=== PATIENT | male | born 1975 | race Asian ===

== ENCOUNTER 2021-06-23 18:29 | Outpatient (CLI) | payer OTHER | END 2021-06-23 18:30 | disposition EMS.NT | LOC: EMS 18:29 | DX: R40.4 Transient alteration of awareness (principal) ==

== ENCOUNTER 2023-02-05 17:20 | Emergency (ER) | payer MEDICAID, OTHER ==
[2023-02-05 17:33] VITALS: BP 151/103
[2023-02-05 18:20] LABS: BASOPHILS # (AUTO) 0.1 10^3/uL (0.0-0.1); BASOPHILS % (AUTO) 0.9 %; EOSINOPHILS # (AUTO) 0.3 10^3/uL (0.0-0.7); EOSINOPHILS % (AUTO) 3.3 %; HCT - HEMATOCRIT 43.2 % (42.0-52.0); HGB - HEMOGLOBIN 14.2 g/dL (14.0-18.0); LYMPHOCYTES # (AUTO) 1.5 10^3/uL (1.5-3.5); LYMPHOCYTES % (AUTO) 19.6 %; MEAN CORPUSCULAR HEMOGLOBIN 32.6 pg (27.0-31.0); MEAN CORPUSCULAR HGB CONC 32.9 g/dL (32.0-36.0); MEAN CORPUSCULAR VOLUME 99.3 fL (80.0-94.0); MEAN PLATELET VOLUME 8.5 fL (7.4-11.4); MONOCYTES # (AUTO) 0.5 10^3/uL (0.0-1.0); MONOCYTES % (AUTO) 7.2 %; NEUTROPHILS # (AUTO) 5.2 10^3/uL (1.5-6.6); NEUTROPHILS % (AUTO) 68.9 %; PLT - PLATELET COUNT 293 10^3/uL (130-450); RED BLOOD COUNT 4.35 10^6/uL (4.70-6.10); RED CELL DISTRIBUTION WIDTH 14.1 % (12.0-15.0); WHITE BLOOD COUNT 7.6 x10^3/uL (4.8-10.8)
--- NOTE | 2023-02-05 18:25 | ED Physician Documentation ---
History of Present Illness - Stated complaint Stated Complaint: RT LEG PX,SWELLING - Chief complaint Chief Complaint: Ext Problem - History obtained from History obtained from: Patient - History of Present Illness Timing: Other (2 years ago) Pain level max: 0 Pain level now: 0 - Additonal information Additional information: Patient is a 47-year-old male who presents to the emergency department stating that he has not seen a doctor for several years since his . He stopped all of his medications at that time including his thyroid medications. His daughter brought him into the emergency department today as they are having difficulty finding a PCP. He complains of swelling to the bilateral lower extremities and thick scaly skin. No fevers. No chills. No redness. He states that he had been on a statin as well as thyroid medication in the past. He states there is a strong family history of diabetes but does not know if he is diabetic or not. Review of Systems Constitutional: denies: Fever, Chills Respiratory: denies: Dyspnea, Cough GI: denies: Nausea, Vomiting, Diarrhea Musculoskeletal: denies: Neck pain, Back pain Neurologic: denies: Headache PD PAST MEDICAL HISTORY - Past Medical History Past Medical History: Yes Endocrine/Autoimmune: HyPOthyroidism - Present Medications Home Medications: Ambulatory Orders Medication Instructions Recorded Confirmed Levothyroxine Sodium [Synthroid] 50 mcg PO DAILY #30 tablet 02/05/23 Simvastatin [Zocor] 10 mg PO DAILY #30 tablet 02/05/23 predniSONE [Deltasone] 10 mg PO [id number] #42 tab 02/05/23 - Allergies Allergies/Adverse Reactions: Allergies Allergy/AdvReac Type Severity Reaction Status Date / Time Penicillins Allergy Unknown Verified 02/05/23 17:33 - Social History Does the pt smoke?: Yes Smoking Status: Current every day smoker Does the pt have substance abuse?: Yes Substance Use and Type: Marijuana, Meth, Prescription Pills PD ED PE NORMAL - Vitals Vital signs reviewed: Yes - General General: Alert and oriented X 3, No acute distress - HEENT HEENT: PERRL, Moist mucous membranes - Neck Neck: Supple, no meningeal sign - Cardiac Cardiac: RRR, Strong equal pulses - Respiratory Respiratory: No respiratory distress, Clear bilaterally - Abdomen Abdomen: Soft, Non tender, Non distended - Back Back: No CVA TTP, No spinal TTP - Derm Derm: Warm and dry, Other (scaly rash to BLE, swelling to B LE as well. no signs of infection) - Extremities Extremities: Other (1+ BLE edema) - Neuro Neuro: Alert and oriented X 3 - Psych Psych: Normal mood, Normal affect Results - Vitals Vitals: Vital Signs - 24 hr 02/05/23 17:30 Temperature 36.6 C Heart Rate 78 Respiratory 16 Rate Blood Pressure 151/103 H O2 Saturation 100 Oxygen O2 Source Room air - Labs Labs: Laboratory Tests 02/05/23 02/05/23 02/05/23 18:12 18:12 18:12 WBC 7.6 RBC 4.35 L Hgb 14.2 Hct 43.2 MCV 99.3 H MCH 32.6 H MCHC 32.9 RDW 14.1 Plt Count 293 MPV 8.5 Neut # (Auto) 5.2 Lymph # (Auto) 1.5 [place] # (Auto) 0.5 Eos # (Auto) 0.3 Baso # (Auto) 0.1 Absolute Nucleated RBC 0.00 Nucleated RBC % 0.0 Sodium 138 Potassium 3.1 L Chloride 97 L Carbon Dioxide 29 Anion Gap 12.0 BUN 22 H Creatinine 1.1 Estimated GFR (MDRD) 72 L Glucose 70 Estimat Average Glucose Hemoglobin A1c % Calcium 9.3 Total Bilirubin 0.5 AST 39 ALT 20 Alkaline Phosphatase 75 Total Protein 8.1 Albumin 4.8 Globulin 3.3 Albumin/Globulin Ratio 1.5 TSH 114.12 H Free T4 < 0.25 L Free T3 pg/mL 2.39 L 02/05/23 18:12 WBC RBC Hgb Hct MCV MCH MCHC RDW Plt Count MPV Neut # (Auto) Lymph # (Auto) [place] # (Auto) Eos # (Auto) Baso # (Auto) Absolute Nucleated RBC Nucleated RBC % Sodium Potassium Chloride Carbon Dioxide Anion Gap BUN Creatinine Estimated GFR (MDRD) Glucose Estimat Average Glucose 120 H Hemoglobin A1c % 5.8 Calcium Total Bilirubin AST ALT Alkaline Phosphatase Total Protein Albumin Globulin Albumin/Globulin Ratio TSH Free T4 Free T3 pg/mL PD Medical Decision Making - ED course Complexity details: reviewed results, re-evaluated patient, considered differential, d/w patient ED course: CBC does not show any acute abnormalities. Chemistry remarkable for a mildly low potassium, his hemoglobin A1c is 5.8. TSH is markedly high at 114. Free T4 is less than 0.25. Free T3 is 2.39. Patient has known hypothyroidism and has been off his medications for the last several years. We will restart at 50 mcg daily. We will have him follow-up with his doctor for further care. He is currently looking for a primary care provider. Information was given about the walk-in clinics. He states that due to the his insurance provider he is having difficulty finding a primary care provider [place], information was given on how to change his [facility]. We will start the patient back on a statin as well. We will also place the patient on prednisone to see if this improves his skin condition. Possible ichthyosis? Recommend large amounts of lotion, long baths. Patient will follow-up with dermatology as well. Patient and family counseled regarding signs and symptoms for which I believe and urgent re- evaluation would be necessary. Patient with good understanding of and agreement to plan and is comfortable going home at this time This document was made in part using voice recognition software. While efforts are made to proofread this document, sound alike and grammatical errors may occur. Departure - Departure Disposition: 01 Home, Self Care Clinical Impression: Dermatitis Hypothyroid Qualifiers: Hypothyroidism type: unspecified Qualified Code(s): E03.9 - Hypothyroidism, unspecified Condition: Good Instructions: ED Dermatitis Non Specific Rash, ED Hypothyroidism Follow-Up: [facility] [place] [Provider Group] Primary/Walk [facility] [Provider Group] [facility] [place] [Provider Group] Walk In [facility] [Provider Group] [facility] [Provider Group] Prescriptions: predniSONE [Deltasone] 10 mg PO [id number] #42 tab Levothyroxine Sodium [Synthroid] 50 mcg PO DAILY #30 tablet Simvastatin [Zocor] 10 mg PO DAILY #30 tablet Comments: Your prescriptions were sent to [facility] in [place]. Please follow-up with a primary care provider for further care. I have included instructions below on how to change your managed care plan. It is important that you have your thyroid studies rechecked with your primary care provider, they will likely need to increase your dosage over time. You should also be using emollient-based lotion on your skin regularly. Please return if you worsen. How do I change my [employer] managed care plan? Change it on [employer]. Visit the [employer] Client Portal. Request a change online. Download the enrollment form online and mail it or fax it to . Call the [facility] at . You can google the following as well: change [facility] provider [facility] Discharge Date/Time: 02/05/23 20:04
[2023-02-05 18:30] LABS: ALBUMIN 4.8 g/dL (3.2-5.5); ALBUMIN/GLOBULIN RATIO 1.5 (1.0-2.2); BILIRUBIN,TOTAL 0.5 mg/dL (0.2-1.0); CALCIUM 9.3 mg/dL (8.5-10.3); CREATININE 1.1 mg/dL (0.6-1.2); POTASSIUM 3.1 mmol/L (3.5-5.0); TOTAL PROTEIN 8.1 g/dL (6.7-8.2)
[2023-02-05 18:47] LABS: FREE T3 2.39 pg/mL (2.5-3.9)
[2023-02-05 19:13] LABS: THYROID STIMULATING HORMONE 114.12 uIU/mL (0.34-5.60)
[2023-02-05 19:15] LABS: FREE T4 (FREE THYROXINE) < 0.25 ng/dL (0.58-1.64)
[2023-02-05] MEDS ORDERED: predniSONE 20 MG TABLET PO STA (19:52)
[2023-02-05] MEDS ORDERED: LEVOTHYROXINE 25 MCG TABLET PO STA (19:52)
[2023-02-05 21:25] LABS: ESTIMATED AVERAGE GLUCOSE 120 mg/dL (70-100); HEMOGLOBIN A1c% 5.8 % (4.27-6.07)
== END 2023-02-05 20:04 | disposition home or self-care (01) ==
LOC: ED 17:20
DX: E03.9 Hypothyroidism, unspecified (principal); L30.9 Dermatitis, unspecified; F17.200 Nicotine dependence, unspecified, uncomplicated
CPT/HCPCS: 36415; 80053; 83036; 84439; 84443; 84481; 85025; 99283; 99284; A9270; J7512

== ENCOUNTER 2023-09-30 14:12 | Outpatient (CLI) | payer MEDICAID | END 2023-09-30 14:13 | disposition critical access hospital (66) | LOC: EMS 14:12 | DX: R03.0 Elevated blood-pressure reading, without diagnosis of hypertension (principal); R06.4 Hyperventilation; R45.1 Restlessness and agitation | CPT/HCPCS: A0425; A0429; A0999 ==

== ENCOUNTER 2023-09-30 15:07 | Emergency (ER) | payer MEDICAID ==
--- NOTE | 2023-09-30 15:12 | ED Physician Documentation ---
PD HPI SYNCOPE - Stated complaint Stated Complaint: HIGH BP/WITHDRAWL - History obtained from History obtained from: Patient, Caregiver (Patient came from [facility] due to elevated blood pressure.) - History of Present Illness Timing - onset: Other (Patient states last use of Meth and Fentanyl was last evening, just shortly prior to going to [facility] for Detox treatment. Intake last evening and has had some meds for symptoms, but had not had opioid withdrawal evident as yet and awaiting 24 hrs after last use. Pt noted to have elevated BP/dyspnea.) Duration: Other (pt states has been told he keri high BP in the past, about 150- 160 systolic on past reading. Not on meds. Had not had it elevated to level it was today.) Preceding symptoms: Dyspnea. No: Headache, Chest pain, Nausea / vomiting Associated symptoms: No: Chest pain, Palpitations, Abdominal pain Contributing factors: No: Decreased PO intake Similar symptoms before: Has not had sx before Recently seen: Clinic (has been at [facility] since last evening.) Review of Systems Constitutional: denies: Fever, Chills Nose: denies: Rhinorrhea / runny nose, Congestion Throat: denies: Sore throat Cardiac: denies: Chest pain / pressure, Palpitations, Pedal edema, Calf pain Respiratory: reports: Dyspnea, Cough. denies: Wheezing GI: reports: Nausea. denies: Abdominal Pain, Vomiting, Diarrhea PD PAST MEDICAL HISTORY - Past Medical History Cardiovascular: None Neuro: None Endocrine/Autoimmune: HyPOthyroidism - Present Medications Home Medications: Ambulatory Orders Medication Instructions Recorded Confirmed Levothyroxine Sodium [Synthroid] 50 mcg PO DAILY #30 tablet 02/05/23 09/30/23 Simvastatin [Zocor] 10 mg PO DAILY #30 tablet 02/05/23 09/30/23 Albuterol Sulfate [Proair 1 - 2 puffs IH Q4HR PRN 09/30/23 09/30/23 Respiclick] Gabapentin [Neurontin] 300 mg PO HS 09/30/23 09/30/23 Losartan Potassium 100 mg PO DAILY #30 tab 09/30/23 Multivitamin 1 each PO DAILY 09/30/23 09/30/23 Vitamin B Complex Vit C No.3 [B 1 each PO DAILY 09/30/23 09/30/23 Complex with Vitamin C] cloNIDine [Catapres] 0.1 mg PO DAILY 09/30/23 09/30/23 hydrOXYzine HCL [Hydroxyzine HCl] 50 mg PO DAILY 09/30/23 09/30/23 methocarbamoL [Methocarbamol] 750 mg PO Q8HR PRN 09/30/23 09/30/23 - Allergies Allergies/Adverse Reactions: Allergies Allergy/AdvReac Type Severity Reaction Status Date / Time Penicillins Allergy Unknown Verified 09/30/23 15:21 - Social History Does the pt smoke?: Yes Smoking Status: Current every day smoker Does the pt have substance abuse?: Yes PD ED PE NORMAL - Vitals Vital signs reviewed: Yes - General General: Alert and oriented X 3, No acute distress (somewhat anxious, with elevated BP. no tremor per se. ), Well developed/nourished - Neck Neck: Supple, no meningeal sign, No adenopathy - Cardiac Cardiac: RRR, No murmur - Respiratory Respiratory: No respiratory distress, Clear bilaterally - Abdomen Abdomen: Soft, Non tender, Non distended - Derm Derm: Normal color, Warm and dry - Extremities Extremities: No tenderness to palpate, No edema, No calf tenderness / cord - Neuro Neuro: Alert and oriented X 3, No motor deficit, Normal speech Results - Vitals Vitals: Vital Signs - 24 hr 09/30/23 09/30/23 09/30/23 15:15 17:24 19:00 Temperature 35.6 C L Heart Rate 64 69 87 Respiratory 24 24 20 Rate Blood Pressure 208/142 H 179/135 H 188/155 H O2 Saturation 93 97 96 If not protocol 2 2 : Oxygen Flow, liters/minute 09/30/23 09/30/23 09/30/23 19:25 19:44 21:00 Temperature Heart Rate 86 78 80 Respiratory 28 H 15 15 Rate Blood Pressure 199/151 H 187/130 H O2 Saturation 98 98 If not protocol 2 : Oxygen Flow, liters/minute Oxygen O2 Source Room air - Labs Labs: Laboratory Tests 09/30/23 09/30/23 15:40 15:40 WBC 11.0 H RBC 4.82 Hgb 13.8 L Hct 43.3 MCV 89.8 MCH 28.6 MCHC 31.9 L RDW 14.3 Plt Count 478 H MPV 7.9 Neut # (Auto) 8.3 H Lymph # (Auto) 1.7 [place] # (Auto) 0.7 Eos # (Auto) 0.2 Baso # (Auto) 0.1 Absolute Nucleated RBC 0.00 Nucleated RBC % 0.0 Sodium 136 Potassium 4.1 Chloride 94 L Carbon Dioxide 36 H Anion Gap 6.0 BUN 19 Creatinine 0.9 Estimated GFR (MDRD) 90 Glucose 99 Calcium 9.4 Magnesium 2.1 Total Bilirubin 0.2 AST 18 ALT 15 Alkaline Phosphatase 126 H Total Protein 7.8 Albumin 4.2 Globulin 3.6 Albumin/Globulin Ratio 1.2 Lipase 49 - Rads (name of study) chest xray Relevant Findings:: Prelim report reviewed (changes of likely bronchitis. No infiltrates. ), EMP independent interpretation of test PD Medical Decision Making - ED course Complexity details: reviewed old records, reviewed results, considered differential (pt with some anxiousness and restless movement of arms/legs. No tremoring per se. BP elevated.History of elevated BP but not on meds. Presume more elevated now by circumstance and from withdrawal. Could be from meth vs fentanyl. Timing less likely fentanyl with last use last evening.), d/w patient Drug Therapy Requiring Monitoring for Toxicity: Gave IV lfuids and Inapsine/Ativan for presume some element of Meth withdrawal. Can watch for improvement, and also consider buprenorphine if gets more agitated, for fentanyl withdrawal. he was sleepy from the initial meds but also got more restless and agitated in bed. BP less but still elevated. I feel he is likely early opioid withdrawal. Given buprenorphine 0.3 mg IV. Less restless. Still sleepy. Can watch a bit more. CXR without infiltrates. He is smoker and has some cough. Could account for his dyspnea. Sats here are adequate. CXR does not appear c/w CHF. No leg edema.Can add Losartan BP med and Albuterol MDI for dyspnea. On change of shift, pt resting and presume will be returned to [facility] this evening. Departure - Departure Clinical Impression: Substance withdrawal, Hypertension Condition: Stable Record reviewed to determine appropriate education?: Yes Prescriptions: Losartan Potassium 100 mg PO DAILY #30 tab Comments: I wrote a prescription for losartan 100 mg daily for the next month to initiate blood pressure medication. Follow-up with primary care or walk-in clinic etc. Follow-up or return to the detox center in [place] for continued care of your withdrawal. You were given a dose of lorazepam as well as buprenorphine here to help with symptoms. You were given some nausea medicine droperidol as well. You were given initial doses of medication for your blood pressure. The goal of blood pressure control is to have it come down to a more normal level over several days or so and not to drop it immediately as that causes more potential symptoms. Some elevation of blood pressure is reasonable over the next couple of days as you are starting on new medication. I [facility] to [email or web address] in [place].
[2023-09-30] MEDS ORDERED: SODIUM CHLORIDE 0.9% 1,000 ML IV STA (15:24)
[2023-09-30] MEDS ORDERED: LORazepam 2 MG/ML VIAL IVP STA (15:30)
[2023-09-30] MEDS ORDERED: DROPERIDOL 5 MG/2 ML VIAL IVP STA (15:31)
[2023-09-30] MEDS ORDERED: LOSARTAN 50 MG TABLET PO STA (15:31)
[2023-09-30 15:49] LABS: BASOPHILS # (AUTO) 0.1 10^3/uL (0.0-0.1); BASOPHILS % (AUTO) 0.7 %; EOSINOPHILS # (AUTO) 0.2 10^3/uL (0.0-0.7); HCT - HEMATOCRIT 43.3 % (42.0-52.0); HGB - HEMOGLOBIN 13.8 g/dL (14.0-18.0); LYMPHOCYTES # (AUTO) 1.7 10^3/uL (1.5-3.5); LYMPHOCYTES % (AUTO) 15.6 %; MEAN CORPUSCULAR HEMOGLOBIN 28.6 pg (27.0-31.0); MEAN CORPUSCULAR HGB CONC 31.9 g/dL (32.0-36.0); MEAN CORPUSCULAR VOLUME 89.8 fL (80.0-94.0); MEAN PLATELET VOLUME 7.9 fL (7.4-11.4); MONOCYTES # (AUTO) 0.7 10^3/uL (0.0-1.0); MONOCYTES % (AUTO) 5.9 %; NEUTROPHILS # (AUTO) 8.3 10^3/uL (1.5-6.6); NEUTROPHILS % (AUTO) 75.4 %; PLT - PLATELET COUNT 478 10^3/uL (130-450); RED BLOOD COUNT 4.82 10^6/uL (4.70-6.10); RED CELL DISTRIBUTION WIDTH 14.3 % (12.0-15.0)
[2023-09-30 15:57] LABS: ALBUMIN 4.2 g/dL (3.2-5.5); ALBUMIN/GLOBULIN RATIO 1.2 (1.0-2.2); BILIRUBIN,TOTAL 0.2 mg/dL (0.2-1.0); CALCIUM 9.4 mg/dL (8.5-10.3); CREATININE 0.9 mg/dL (0.6-1.3); MAGNESIUM 2.1 mg/dL (1.7-2.3); POTASSIUM 4.1 mmol/L (3.5-4.5); TOTAL PROTEIN 7.8 g/dL (6.4-8.9)
[2023-09-30] MEDS ORDERED: BUPRENORPHINE 0.3 MG/ML VIAL IVP ONE (18:27)
[2023-09-30] MEDS ORDERED: ENALAPRILAT 1.25 MG/ML VIAL IVP STA (18:34)
--- NOTE | 2023-09-30 18:58 | XRAY Report ---
PROCEDURE: Chest 1V INDICATIONS: COUGH/DYSPNEA TECHNIQUE: One view of the chest was acquired. COMPARISON: None. FINDINGS: Uncooperative patient. Surgical changes and devices: None. Lungs and pleura: Diffuse thickening of the interstitial markings bilaterally. Possible strand-like opacity in the left lateral lower lung and right costophrenic sulcus. Mild bilateral peribronchial wa ll thickening. No significant pleural effusion. Mediastinum: Mediastinal contours appear normal. Heart size is normal. Bones and chest wall: No suspicious bony lesions. Overlying soft tissues appear unremarkable. IMPRESSION: Changes of probable bronchitis or reactive airways disease. There may be small bibasilar alveolar opacities, potentially infectious or inflammatory. Reviewed by: Lynne Pardo MD on 09/30/2023 6:56 PM PST Approved by: Lynne Pardo MD on 09/30/2023 6:56 PM PST Station ID: [id number]
[2023-09-30] MEDS ORDERED: ALBUTEROL NEB 2.5 MG/3 ML INH STA (19:13)
[2023-09-30] MEDS ORDERED: cloNIDine 0.1 MG TABLET PO STA (21:01)
[2023-09-30 23:39] VITALS: O2SAT 94
[2023-10-01 02:12] VITALS: BP 126/94
--- NOTE | 2023-10-01 06:40 | ED Physician Documentation ---
ED Addendum - Addendum Addendum: 10/01/23 06:37 The patient was signed out to me at change of shift, pending improved mental status and blood pressure and final disposition. He had come from my to our and there was question of whether he may be able to go there once stabilized. The patient actually remained quite stable in the emergency department. On my evaluation, he was somewhat drowsy but arouses easily and answers questions appropriately. The patient had no complaints other than he was irritated that he had had to stay in the ED for so long. The patient's blood pressure was running quite high which on review of prior records, appeared to be a chronic issue for him. The patient did not have any complaints to indicate hypertensive emergency, however. I did have concern of the leg to may not feel comfortable taking him back if his pressure was high, however, and so the patient was treated with a dose of clonidine on my shift. This did improve his pressure drastically to 126/93. The patient did not have any other symptoms of withdrawal whatsoever,. He was not tachycardic, nor was he tremulous. He did not demonstrate yawning or piloerection. He was resting comfortably in bed. He had already been given a dose of buprenorphine here in the emergency department and I did not feel that he needed more of this or more Ativan, which she had also received. The patient was no longer nauseated after receiving droperidol prior to my arrival and was able to simply rest comfortably in the emergency department. I do I did state that they would take him back and at this time, he is just awaiting Transfer to [facility] to which is scheduled to happen around 720 this morning. Final impression: See original note Disposition: Discharged to [facility] to in stable and improved condition.
== END 2023-10-01 07:27 | disposition home or self-care (01) ==
LOC: EDUNIT# → ED 15:07
DX: F19.239 Other psychoactive substance dependence with withdrawal, unspecified (principal); I10 Essential (primary) hypertension; F17.200 Nicotine dependence, unspecified, uncomplicated
CPT/HCPCS: 36415; 71045; 80053; 83690; 83735; 85025; 94640; 94664; 96374; 96375; 99284; 99285; A9270; J0592; J2060

== ENCOUNTER 2025-07-17 15:09 | Inpatient (IN) ==
[2025-07-17] MEDS ORDERED: NALOXONE 0.4 MG/ML VIAL ONE (15:18)
[2025-07-17] MEDS: SODIUM CHLORIDE 0.9% 1,000 ML IV STA ×5 (15:19→20:42)
--- OUTSIDE RECORDS SUMMARY | 2025-07-17 15:22 | EXTERNAL MEDICAL SUMMARY RPT | Continuity of Care Document ---
Author Organization [place] Address [address] [place] [id number] Phone Care Team Providers Care Network Technical Analyst Name Role Phone Nayan Morris Unavailable Unavailable Allergies and Intolerances date description facility reaction severity 2025-05-04 10:20:53 [facility] (no reactio n) (no severity) 2025-05-18 15:09:30 [facility] (no reactio n) (no severity) 2025-07-03 14:44:09 [facility] (no reactio n) (no severity) 2025-05-04 10:20:53 [facility] (no reactio n) (no severity) 2025-05-18 15:09:30 [facility] (no reactio n) (no severity) 2025-07-03 14:44:09 [facility] (no reactio n) (no severity) Medications date description facility 2025-05-04 00:00 Triamcinolone Acetonide [facility] 2025-05-04 00:00 Roflumilast [facility] 2025-05-04 00:00 Budesonide-Formoterol [facility] 2025-05-04 00:00 Ipratropium-Albuterol [facility] 2025-05-04 00:00 Levothyroxine [facility] 2025-05-04 00:00 Prednisone [facility] 2025-07-03 00:00 Prednisone [facility] 2025-05-04 00:00 Albuterol Sulfate [facility] 2025-07-03 00:00 Albuterol Sulfate [facility] 2025-05-04 00:00 Furosemide [facility] 2025-05-18 00:00 Tizanidine [facility] 2025-07-03 00:00 Fluoxetine [facility] 2025-05-04 00:00 [facility] 2025-05-04 00:00 Atorvastatin [facility] 2025-05-04 00:00 Albuterol Sulfate [facility] 2025-05-04 00:00 Metformin [facility] 2025-05-04 00:00 Levothyroxine [facility] 2025-05-04 00:00 Losartan [facility] 2025-05-04 00:00 Bupropion Hcl [facility] Problems date description facility 2025-05-04 10:59 Hypothyroidism, [facility] 2025-05-04 10:59 Hyperlipidemia, [facility] 2025-05-04 10:59 Impaired fasting glucose [facility] 2025-05-04 10:59 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, [facility] 2025-05-05 16:39 Hypothyroidism, [facility] 2025-05-05 16:39 Hyperlipidemia, [facility] 2025-05-05 16:39 Impaired fasting glucose [facility] 2025-05-05 16:39 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, [facility] 2025-07-03 00:00 Lung nodule [facility] Results/Labs test date facility value unit notes Result panel 1 Specimen collection (procedure) (no date) [facility] (missing) (missing) (missing) Result panel 2 Specimen collection (procedure) (no date) [facility] (missing) (missing) (missing) Result panel 3 Specimen collection (procedure) (no date) [facility] (missing) (missing) (missing) Result panel 4 Specimen collection (procedure) (no date) [facility] (missing) (missing) (missing) Result panel 5 Specimen collection (procedure) (no date) [facility] (missing) (missing) (missing) Result panel 6 Specimen collection (procedure) (no date) [facility] (missing) (missing) (missing) Result panel 7 Specimen collection (procedure) (no date) [facility] (missing) (missing) (missing) Result panel 8 Specimen collection (procedure) (no date) [facility] (missing) (missing) (missing) Result panel 9 Specimen collection (procedure) (no date) [facility] (missing) (missing) (missing) Result panel 10 Specimen collection (procedure) (no date) [facility] (missing) (missing) (missing) Result panel 11 Specimen collection (procedure) (no date) [facility] (missing) (missing) (missing) Result panel 12 Specimen collection (procedure) (no date) [facility] (missing) (missing) (missing) Result panel 13 Specimen collection (procedure) (no date) [facility] (missing) (missing) (missing) Result panel 14 Specimen collection (procedure) (no date) [facility] (missing) (missing) (missing) Result panel 15 Specimen collection (procedure) (no date) [facility] (missing) (missing) (missing) Result panel 16 Specimen collection (procedure) (no date) [facility] (missing) (missing) (missing) Result panel 17 Specimen collection (procedure) (no date) [facility] (missing) (missing) (missing) Result panel 18 Specimen collection (procedure) (no date) [facility] (missing) (missing) (missing) Result panel 19 Specimen collection (procedure) (no date) [facility] (missing) (missing) (missing) Result panel 20 Specimen collection (procedure) (no date) [facility] (missing) (missing) (missing) Result panel 21 Specimen collection (procedure) (no date) [facility] (missing) (missing) (missing) Result panel 22 Specimen collection (procedure) (no date) [facility] (missing) (missing) (missing) Result panel 23 Specimen collection (procedure) (no date) [facility] (missing) (missing) (missing) Result panel 24 Specimen collection (procedure) (no date) [facility] (missing) (missing) (missing) Result panel 25 Specimen collection (procedure) (no date) [facility] (missing) (missing) (missing) Result panel 26 Specimen collection (procedure) (no date) [facility] (missing) (missing) (missing) Result panel 27 Specimen collection (procedure) (no date) [facility] (missing) (missing) (missing) Result panel 28 Specimen collection (procedure) (no date) [facility] (missing) (missing) (missing) Result panel 29 Specimen collection (procedure) (no date) [facility] (missing) (missing) (missing) Result panel 30 Specimen collection (procedure) (no date) [facility] (missing) (missing) (missing) Result panel 31 Specimen collection (procedure) (no date) [facility] (missing) (missing) (missing) Result panel 32 Specimen collection (procedure) (no date) [facility] (missing) (missing) (missing) Result panel 33 Specimen collection (procedure) (no date) [facility] (missing) (missing) (missing) Result panel 34 Specimen collection (procedure) (no date) [facility] (missing) (missing) (missing) Result panel 35 Specimen collection (procedure) (no date) [facility] (missing) (missing) (missing) Result panel 36 Specimen collection (procedure) (no date) [facility] (missing) (missing) (missing) Result panel 37 Specimen collection (procedure) (no date) [facility] (missing) (missing) (missing) Result panel 38 Specimen collection (procedure) (no date) [facility] (missing) (missing) (missing) Result panel 39 Specimen collection (procedure) (no date) [facility] (missing) (missing) (missing) Result panel 40 Specimen collection (procedure) (no date) [facility] (missing) (missing) (missing) Result panel 41 Specimen collection (procedure) (no date) [facility] (missing) (missing) (missing) Result panel 42 Specimen collection (procedure) (no date) [facility] (missing) (missing) (missing) Result panel 43 Specimen collection (procedure) (no date) [facility] (missing) (missing) (missing) Result panel 44 Specimen collection (procedure) (no date) [facility] (missing) (missing) (missing) Result panel 45 Specimen collection (procedure) (no date) [facility] (missing) (missing) (missing) Result panel 46 Specimen collection (procedure) (no date) [facility] (missing) (missing) (missing) Result panel 47 Specimen collection (procedure) (no date) [facility] (missing) (missing) (missing) Result panel 48 Specimen collection (procedure) (no date) [facility] (missing) (missing) (missing) Result panel 49 Specimen collection (procedure) (no date) [facility] (missing) (missing) (missing) Result panel 50 Specimen collection (procedure) (no date) [facility] (missing) (missing) (missing) Result panel 51 Specimen collection (procedure) (no date) [facility] (missing) (missing) (missing) Result panel 52 Specimen collection (procedure) (no date) [facility] (missing) (missing) (missing) Result panel 53 Specimen collection (procedure) (no date) [facility] (missing) (missing) (missing) Result panel 54 Specimen collection (procedure) (no date) [facility] (missing) (missing) (missing) Result panel 55 Specimen collection (procedure) (no date) [facility] (missing) (missing) (missing) Result panel 56 Specimen collection (procedure) (no date) [facility] (missing) (missing) (missing) Result panel 57 Specimen collection (procedure) (no date) [facility] (missing) (missing) (missing) Result panel 58 Specimen collection (procedure) (no date) [facility] (missing) (missing) (missing) Result panel 59 Specimen collection (procedure) (no date) [facility] (missing) (missing) (missing) Result panel 60 Specimen collection (procedure) (no date) [facility] (missing) (missing) (missing) Result panel 61 Specimen collection (procedure) (no date) [facility] (missing) (missing) (missing) Result panel 62 Specimen collection (procedure) (no date) [facility] (missing) (missing) (missing) Result panel 63 Specimen collection (procedure) (no date) [facility] (missing) (missing) (missing) Result panel 64 Specimen collection (procedure) (no date) [facility] (missing) (missing) (missing) Result panel 65 Specimen collection (procedure) (no date) [facility] (missing) (missing) (missing) Result panel 66 Specimen collection (procedure) (no date) [facility] (missing) (missing) (missing) Result panel 67 Specimen collection (procedure) (no date) [facility] (missing) (missing) (missing) Result panel 68 Specimen collection (procedure) (no date) [facility] (missing) (missing) (missing) Result panel 69 Specimen collection (procedure) (no date) [facility] (missing) (missing) (missing) Result panel 70 Specimen collection (procedure) (no date) [facility] (missing) (missing) (missing) Result panel 71 Specimen collection (procedure) (no date) [facility] (missing) (missing) (missing) Result panel 72 Specimen collection (procedure) (no date) [facility] (missing) (missing) (missing) Result panel 73 Specimen collection (procedure) (no date) [facility] (missing) (missing) (missing) Result panel 74 Specimen collection (procedure) (no date) [facility] (missing) (missing) (missing) Result panel 75 Specimen collection (procedure) (no date) [facility] (missing) (missing) (missing) Result panel 76 Specimen collection (procedure) (no date) [facility] (missing) (missing) (missing) Result panel 77 Specimen collection (procedure) (no date) [facility] (missing) (missing) (missing) Result panel 78 Specimen collection (procedure) (no date) [facility] (missing) (missing) (missing) Result panel 79 Specimen collection (procedure) (no date) [facility] (missing) (missing) (missing) Result panel 80 Specimen collection (procedure) (no date) [facility] (missing) (missing) (missing) Result panel 81 Specimen collection (procedure) (no date) [facility] (missing) (missing) (missing) Result panel 82 Specimen collection (procedure) (no date) [facility] (missing) (missing) (missing) Result panel 83 Specimen collection (procedure) (no date) [facility] (missing) (missing) (missing) Result panel 84 Specimen collection (procedure) (no date) [facility] (missing) (missing) (missing) Result panel 85 Specimen collection (procedure) (no date) [facility] (missing) (missing) (missing) Result panel 86 Specimen collection (procedure) (no date) [facility] (missing) (missing) (missing) Result panel 87 Specimen collection (procedure) (no date) [facility] (missing) (missing) (missing) Result panel 88 Specimen collection (procedure) (no date) [facility] (missing) (missing) (missing) Result panel 89 Specimen collection (procedure) (no date) [facility] (missing) (missing) (missing) Result panel 90 Specimen collection (procedure) (no date) [facility] (missing) (missing) (missing) Result panel 91 Specimen collection (procedure) (no date) [facility] (missing) (missing) (missing) Result panel 92 Specimen collection (procedure) (no date) [facility] (missing) (missing) (missing) Result panel 93 Specimen collection (procedure) (no date) [facility] (missing) (missing) (missing) Result panel 94 Specimen collection (procedure) (no date) [facility] (missing) (missing) (missing) Result panel 95 Specimen collection (procedure) (no date) [facility] (missing) (missing) (missing) Result panel 96 Specimen collection (procedure) (no date) [facility] (missing) (missing) (missing) Result panel 97 Specimen collection (procedure) (no date) [facility] (missing) (missing) (missing) Result panel 98 Specimen collection (procedure) (no date) [facility] (missing) (missing) (missing) Result panel 99 Specimen collection (procedure) (no date) [facility] (missing) (missing) (missing) Result panel 100 Specimen collection (procedure) (no date) [facility] (missing) (missing) (missing) Result panel 101 Specimen collection (procedure) (no date) [facility] (missing) (missing) (missing) Result panel 102 Specimen collection (procedure) (no date) [facility] (missing) (missing) (missing) Result panel 103 Specimen collection (procedure) (no date) [facility] (missing) (missing) (missing) Result panel 104 Specimen collection (procedure) (no date) [facility] (missing) (missing) (missing) Result panel 105 Specimen collection (procedure) (no date) [facility] (missing) (missing) (missing) Result panel 106 Specimen collection (procedure) (no date) [facility] (missing) (missing) (missing) Result panel 107 Specimen collection (procedure) (no date) [facility] (missing) (missing) (missing) Result panel 108 Specimen collection (procedure) (no date) [facility] (missing) (missing) (missing) Result panel 109 Specimen collection (procedure) (no date) [facility] (missing) (missing) (missing) Result panel 110 Specimen collection (procedure) (no date) [facility] (missing) (missing) (missing) Result panel 111 Specimen collection (procedure) (no date) [facility] (missing) (missing) (missing) Result panel 112 Specimen collection (procedure) (no date) [facility] (missing) (missing) (missing) Result panel 113 Specimen collection (procedure) (no date) [facility] (missing) (missing) (missing) Result panel 114 Specimen collection (procedure) (no date) [facility] (missing) (missing) (missing) Result panel 115 Specimen collection (procedure) (no date) [facility] (missing) (missing) (missing) Result panel 116 Specimen collection (procedure) (no date) [facility] (missing) (missing) (missing) Result panel 117 Specimen collection (procedure) (no date) [facility] (missing) (missing) (missing) Result panel 118 Specimen collection (procedure) (no date) [facility] (missing) (missing) (missing) Result panel 119 Specimen collection (procedure) (no date) [facility] (missing) (missing) (missing) Result panel 120 Specimen collection (procedure) (no date) [facility] (missing) (missing) (missing) Result panel 121 Specimen collection (procedure) (no date) [facility] (missing) (missing) (missing) Result panel 122 Specimen collection (procedure) (no date) [facility] (missing) (missing) (missing) Result panel 123 Specimen collection (procedure) (no date) [facility] (missing) (missing) (missing) Result panel 124 Specimen collection (procedure) (no date) [facility] (missing) (missing) (missing) Result panel 125 Specimen collection (procedure) (no date) [facility] (missing) (missing) (missing) Result panel 126 Specimen collection (procedure) (no date) [facility] (missing) (missing) (missing) Result panel 127 Specimen collection (procedure) (no date) [facility] (missing) (missing) (missing) Result panel 128 Specimen collection (procedure) (no date) [facility] (missing) (missing) (missing) Result panel 129 Specimen collection (procedure) (no date) [facility] (missing) (missing) (missing) Result panel 130 Specimen collection (procedure) (no date) [facility] (missing) (missing) (missing) Result panel 131 Specimen collection (procedure) (no date) [facility] (missing) (missing) (missing) Result panel 132 Specimen collection (procedure) (no date) [facility] (missing) (missing) (missing) Result panel 133 Specimen collection (procedure) (no date) [facility] (missing) (missing) (missing) Result panel 134 Specimen collection (procedure) (no date) [facility] (missing) (missing) (missing) Result panel 135 Specimen collection (procedure) (no date) [facility] (missing) (missing) (missing) Result panel 136 Specimen collection (procedure) (no date) [facility] (missing) (missing) (missing) Result panel 137 Specimen collection (procedure) (no date) [facility] (missing) (missing) (missing) Result panel 138 Specimen collection (procedure) (no date) [facility] (missing) (missing) (missing) Result panel 139 Specimen collection (procedure) (no date) [facility] (missing) (missing) (missing) Result panel 140 Specimen collection (procedure) (no date) [facility] (missing) (missing) (missing) Result panel 141 Specimen collection (procedure) (no date) [facility] (missing) (missing) (missing) Result panel 142 Specimen collection (procedure) (no date) [facility] (missing) (missing) (missing) Result panel 143 Specimen collection (procedure) (no date) [facility] (missing) (missing) (missing) Result panel 144 Specimen collection (procedure) (no date) [facility] (missing) (missing) (missing) Result panel 145 Specimen collection (procedure) (no date) [facility] (missing) (missing) (missing) Result panel 146 Specimen collection (procedure) (no date) [facility] (missing) (missing) (missing) Result panel 147 Specimen collection (procedure) (no date) [facility] (missing) (missing) (missing) Result panel 148 Specimen collection (procedure) (no date) [facility] (missing) (missing) (missing) Result panel 149 Specimen collection (procedure) (no date) [facility] (missing) (missing) (missing) Result panel 150 Specimen collection (procedure) (no date) [facility] (missing) (missing) (missing) Result panel 151 Specimen collection (procedure) (no date) [facility] (missing) (missing) (missing) Result panel 152 Specimen collection (procedure) (no date) [facility] (missing) (missing) (missing) Result panel 153 Specimen collection (procedure) (no date) [facility] (missing) (missing) (missing) Result panel 154 Hemoglobin A1c percentage 2025-05-04 10:56:07 [facility] 6.7 % (missing) Result panel 155 Triglyceride [Mass/volume] i n Serum or Plasma 2025-05-04 10:56:07 [facility] 169 mg/dL (m issing) Result panel 156 Cholesterol [Mass/volume] in Serum or Plasma 2025-05-04 10:56:07 [facility] 245 mg/dL (m issing) Result panel 157 Cholesterol in HDL [Mass/volume] in Serum or Plasma 2025-05-04 10:56:07 [facility] 42 mg/dL (miss ing) Result panel 158 Serum or plasma cholesterol in LDL measurement by calculation (mass/volume) 2025-05-04 10:56:07 [facility] 169 mg/dL (missing) Result panel 159 Thyroxine (T4) free [Mass/volume] in Serum or Plasma 2025-05-04 10:56:07 [facility] 0.25 ng/dL (miss ing) Result panel 160 Hemoglobin A1c percentage 2025-05-04 10:56:07 [facility] 6.7 % (missing) Result panel 161 Triglyceride [Mass/volume] i n Serum or Plasma 2025-05-04 10:56:07 [facility] 169 mg/dL ( issing) Result panel 162 Cholesterol [Mass/volume] in Serum or Plasma 2025-05-04 10:56:07 [facility] 245 mg/dL ( issing) Result panel 163 Cholesterol in HDL [Mass/volume] in Serum or Plasma 2025-05-04 10:56:07 [facility] 42 mg/dL ([facility]) Result panel 164 Serum or plasma cholesterol in LDL measurement by calculation (mass/volume) 2025-05-04 10:56:07 [facility] 169 mg/dL (missing) Result panel 165 Thyroxine (T4) free [Mass/volume] in Serum or Plasma 2025-05-04 10:56:07 [facility] 0.25 ng/dL ([facility]) Result panel 166 Triglycerides 2025-05-04 12:13 [facility] 169 mg/ dl NORMAL: <150 MG/DL BORDERLINE HIGH: 150-199 MG/DL HIGH: 200-499 MG/DL VERY HIGH: >500 MG/DL LDL Cholesterol Calculated 2025-05-04 12:13 [facility] 169 mg/dl OPTIMAL LESS THAN 100 MG/DL NEAR OR ABOVE OPTIMAL 100 - 129 MG/DL BORDERLINE HIGH 130 - 159 MG/DL HIGH 160 - 189 MG/DL VERY HIGH >= 190 MG/DL Cholesterol 2025-05-04 12:13 [facility] 245 mg/dl Desirable: <200 mg/dL Borderline High: 200-239 mg/dL High: >239 mg/dL HDL Cholesterol 2025-05-04 12:13 [facility] 42 m g/dl ATP-III [employer] HDL >60 mg/dL COUNT A 'NEGATIVE' RISK FACTOR. Result panel 167 TSH w/ Reflex to FT4 2025-05-04 12:42 [facility] 91.20 uiu/ml (missing) Result panel 168 Free T4, Direct Thyroxine 2025-05-04 13:22 [facility] 0.25 ng/dl (missing ) Hemoglobin A1C% w Est Avg Glu 2025-05-04 13:22 [facility] 6.7 % Hemoglob in A1c Estimated Average Glucose (mg/dl) 5% 97 6% 126 7% 154 8% 183 9% 212 10% 240 11% 269 12% 298 Individuals with Hemoglobin (Hb)A1c between 5.7-6.4% are at increased risk for diabetes. TSH w/ Reflex to FT4 2025-05-04 13:22 [facility] 91.20 uiu/ml (missing ) Social History date description facility 2025-05-04 00:00 Current some day smoker [facility] 2025-05-18 00:00 Current some day [facility] 2025-07-03 00:00 Current some day [facility] Vital Signs date measurement value units 2025-05-04 00:00 BMI 35.3 kg/m2 2025-05-04 00:00 BP_diastolic 90 mmHg 2025-05-04 00:00 BP_systolic 148 mmHg 2025-05-04 00:00 heart_rate 87 /min 2025-05-04 00:00 height_metric 177.8 cm 2025-05-04 00:00 height_standard 70 in 2025-05-04 00:00 o2_saturation 87 % 2025-05-04 00:00 temperature_metric 36.78 C 2025-05-04 00:00 temperature_standard 98.2 F 2025-05-04 00:00 weight_metric 111.69 kg 2025-05-04 00:00 weight_standard 246.23 lb 2025-05-18 00:00 BMI 34.7 kg/m2 2025-05-18 00:00 BP_diastolic 88 mmHg 2025-05-18 00:00 BP_systolic 132 mmHg 2025-05-18 00:00 heart_rate 86 /min 2025-05-18 00:00 height_metric 177.8 cm 2025-05-18 00:00 o2_saturation 96 % 2025-05-18 00:00 temperature_standard 98.2 F 2025-05-18 00:00 weight_metric 109.99 kg 2025-07-03 00:00 BMI 32.1 kg/m2 2025-07-03 00:00 BP_diastolic 82 mmHg 2025-07-03 00:00 BP_systolic 134 mmHg 2025-07-03 00:00 heart_rate 91 /min 2025-07-03 00:00 height_metric 177.8 cm 2025-07-03 00:00 o2_saturation 96 % 2025-07-03 00:00 temperature_standard 98.2 F 2025-07-03 00:00 weight_metric 101.77 kg
[2025-07-17] MEDS: NALOXONE 0.4 MG/ML VIAL IVP STA (15:23)
[2025-07-17 15:24] LABS: HCT - HEMATOCRIT 42.6 % (42.0-52.0); HGB - HEMOGLOBIN 12.4 g/dL (14.0-18.0); MEAN PLATELET VOLUME 9.1 fL (7.4-11.4); NRBC ABSOLUTE COUNT (AUTO) 0.30 x10^3/uL; NUCLEATED RED BLOOD CELLS AUTO 5.6 /100WBC; PLT - PLATELET COUNT 142 10^3/uL (130-450); RED CELL DISTRIBUTION WIDTH 16.1 % (12.0-15.0)
[2025-07-17 15:25] LABS: SLIDE REVIEW? Indicated
[2025-07-17 15:37] LABS: ALT ALANINE AMINOTRANSFERASE 127.0 IU/L (10-60); AST ASPARTATE AMINOTRANSFERASE 191.0 IU/L (10-42); BUN - BLOOD UREA NITROGEN 33.0 mg/dL (6-20); CARBON DIOXIDE - CO2 34.0 mmol/L (21-32); CREATININE 3.0 mg/dL (0.6-1.3); GFR - MDRD 22.0 (>89)
[2025-07-17] MEDS: DEXMEDETOMIDINE 400 MCG/100 ML 100 ML IV PRN (15:41)
--- NOTE | 2025-07-17 15:42 | XRAY Report ---
PROCEDURE: XR Chest for Line Placement INDICATIONS: s/p intubation TECHNIQUE: One view of the chest was acquired. COMPARISON: 09/12/2024 and 09/30/2023. FINDINGS: FINDINGS: Surgical changes and devices: ET tube tip is approximately 3.5 cm above the nazanin.. Lungs and pleura: No pleural effusions or pneumothorax. Pulmonary vascular congestion is seen, no definite focal infiltrate. Mediastinum: Mediastinal contours appear normal. Heart size is enlarged. Bones and chest wall: No suspicious bony lesions. Overlying soft tissues appear unremarkable. IMPRESSION: Cardiomegaly and mild congestion. No definite focal infiltrate. No pleural effusion or pneumothorax. ET tube appears in satisfactory position. Reviewed by: Vincent Carroll MD on 07/17/2025 3:38 PM PDT Approved by: Vincent Carroll MD on 07/17/2025 3:38 PM PDT Station ID: [id number]
[2025-07-17] MEDS: NOREPINEPHRINE/0.9 % NS 8 MG/250 ML BAG IV SCH (15:45)
--- NOTE | 2025-07-17 15:45 | ED Physician Documentation ---
History of Present Illness Stated complaint Stated Complaint: ROSC Chief complaint Chief Complaint: Cardiac History obtained from History obtained from: EMS Additonal information Additional information: 49-year-old male brought in by EMS after reports of being called for agonal respirations. EMS states that they found him agonal he breathing but no palpable pulse, therefore they started CPR. Gave 1 mg of epinephrine. Patient was into bed by EMS and a IO line was placed in the right lower leg. They then gave him 10 mg of Versed and 200 mcg of fentanyl as he was "fighting the tube". Patient is unresponsive upon arrival, intubated. Family arrived to the emergency department and states that he uses fentanyl, methamphetamines, opiates, nitrous and any other drug that he can get his hands on. He reportedly told the family that he was "ready to check out". Review of Systems Status of ROS: unobtainable due to medical condition Meds/Allgy Home Medications Ambulatory Orders Medication Instructions Recorded Confirmed albuterol sulfate 90 mcg/actuation 1 - 2 puff IH Q4HR PRN soa 09/30/23 07/17/25 breath activated powder inhaler (ProAir RespiClick) gabapentin 300 mg capsule 300 mg PO BID 09/30/2307/17 losartan 100 mg tablet 100 mg PO DAILY #30 tabs 07/17/25 albuterol sulfate 2.5 mg/3 mL 2.5 mg inhalation Q6H SC N 09/12/24 07/17/25 (0.083 %) solution for nebulization shortness of breat h or wheezing atorvastatin 40 mg tablet 40 mg PO QPM 09/12/24 budesonide-formoterol HFA 160 2 puff inhalation TID 07/17/25 mcg-4.5 mcg/actuation aerosol inhaler buprenorphine 8 mg-naloxone 2 mg 1 film sublingual TID 09/12/24 07/17/25 sublingual film (Suboxone) bupropion HCl 150 mg 24 hr tablet, 450 mg PO DAILY 07/2707/17/25 extended release fluoxetine 10 mg capsule 10 mg PO DAILY 09/12/2407/04 Held on 07/17/25. Instructions: Per Patient ipratropium 0.5 mg-albuterol 3 mg 3 ml inhalation BID 09/12/24 07/17/25 (2.5 mg base)/3 mL nebulization soln metformin 500 mg tablet,extended 500 mg PO DAILY 09/1207/17/25 release 24 hr oxybutynin chloride 5 mg tablet 5 mg PO DAILY 09/12/24 07/17/25 roflumilast 250 mcg tablet 250 mcg PO DAILY 09/12/24 1 tiotropium bromide 18 mcg capsule 1 cap inhalation MANUEL LY 09/12/24 07/17/25 with inhalation device tizanidine 4 mg tablet 4 mg PO BID PRN anxiety 09/0307/17/25 trazodone 50 mg tablet 150 mg PO HS PRN insomnia 07/17/25 furosemide 20 mg tablet 20 mg PO DAILY 07/17/2507/04 levothyroxine 175 mcg tablet 175 mcg PO DAILY 07/17/25 07/17/25 triamcinolone acetonide 0.1 % 1 applic topical BID PRN rash 07/17/25 07/17/25 topical cream Allergies Allergies Allergy/AdvReac Type Severity Reaction Status Date / Time Penicillins Allergy Unknown Verified 09/12/24 22:31 PFSH Active Problems All Active Problems (Updated 07/17/25 @ 22:17 by Wallace Sierra MD) Respiratory failure (Acute) Shock (Acute) Obtundation (Acute) Hypercapnic respiratory failure (Acute) Elevated liver transaminase level (Acute) MARIA DEL CARMEN (acute kidney injury) (Acute) Overdose (Acute) Medical History Medical History (Updated 07/17/25 @ 22:17 by Wallace Sierra MD) On home O2 Hypothyroid High cholesterol Hypertension COPD (chronic obstructive pulmonary disease) Surgical History Surgical History (Updated 09/12/24 @ 22:14 by Izabella Li RN) History of ankle surgery Social History Social History (Updated 07/17/25 @ 18:52 by Samy Jackson DO) Smoking Status: Smoker with current status unk Patient requests smoking cessation consult: No Do you feel safe in your home environment?: Yes History of physical, verbal, emotional, or financial abuse?: No Frequency: Daily Exam Exam Vital Signs: Vital Signs x48h Temp Pulse Resp BP Pulse Ox 07/17/25 16:50 38.5 C H 98 34 H 85/66 L 93 07/17/25 16:45 38.5 C H 99 34 H 102/58 L 95 07/17/25 16:40 38.4 C H 100 33 H 84/64 L 98 07/17/25 16:35 38.3 C H 100 33 H 103/71 93 07/17/25 16:30 38.3 C H 101 H 33 H 98/68 98 07/17/25 16:29 38.3 C H 102 H 34 H 95/71 98 07/17/25 16:20 38.3 C H 103 H 33 H 95/75 98 07/17/25 16:15 38.3 C H 100 33 H 103/68 99 07/17/25 16:10 38.3 C H 104 H 30 H 164/132 H 98 07/17/25 16:05 38.3 C H 105 H 33 H 169/75 H 07/17/25 16:00 38.3 C H 105 H 33 H 73 L 07/17/25 15:55 37.9 C 103 H 32 H 102/73 82 L 07/17/25 15:50 37.8 C 105 H 36 H 70/52 L 75 L 07/17/25 15:45 37.8 C 104 H 30 H 75 L 07/17/25 15:40 37.6 C 105 H 28 H 76/54 L 61 L 07/17/25 15:35 37.6 C 107 H 22 93/66 91 L 07/17/25 15:30 37.3 C 100 16 95/58 L 85 L 07/17/25 15:23 105 H 85/61 L 84 L 07/17/25 15:18 96 07/17/25 15:15 36.6 C 120 H 25 H 77 L 07/17/25 15:06 110 H Constitutional intubated HENMT normocephalic, head/scalp atraumatic and oropharynx normal Eyes Pinpoint pupils bilaterally Neck/C-Spine trachea midline No step-off or deformity over the cervical spine Respiratory breath sounds equal bilaterally breath sounds equal with bagging Cardiovascular normal heart rate noted and regular rhythm noted Gastrointestinal abdomen soft to palpation mild distention Back/Pelvis no thoracic spine tenderness and no lumbar spine tenderness Extremities chronic venous stasis B LE Skin no rash Results Vitals Vitals: Vital Signs - 24 hr 07/17/25 15:06 07/17/25 15:15 10/14/25 15:15 Temperature 36.6 C Temperature Source Temporal Artery Scan Pulse Rate 110 H 120 H Respiratory Rate 25 H Blood Pressure O2 Saturation 77 L Oxygen Delivery Method Ambu-Bag O2 Source Ambu bag Fraction of Inspired Oxygen (FIO2) Pain Intensity 0 07/17/25 15:18 07/17/25 15:23 07/17/25 15:30 Temperature 37.3 C Temperature Source Bladder Pulse Rate 105 H 100 Respiratory Rate 16 Blood Pressure 85/61 L 95/58 L O2 Saturation 96 84 L 85 L Oxygen Delivery Method O2 Source Ambu bag Mechanical ventilator Mechanical ventilator Fraction of Inspired Oxygen (FIO2) Pain Intensity 07/17/25 15:35 07/17/25 15:40 07/17/25 15:45 Temperature 37.6 C 37.6 C 37.8 C Temperature Source Bladder Bladder Bladder Pulse Rate 107 H 105 H 104 H Respiratory Rate 22 28 H 30 H Blood Pressure 93/66 76/54 L O2 Saturation 91 L 61 L 75 L Oxygen Delivery Method O2 Source Mechanical ventilator Mechanical ventilator Mechanical ventilator Fraction of Inspired Oxygen (FIO2) Pain Intensity 07/17/25 15:50 07/17/25 15:55 07/17/25 16:00 Temperature 37.8 C 37.9 C 38.3 C H Temperature Source Bladder Bladder Bladder Pulse Rate 105 H 103 H 105 H Respiratory Rate 36 H 32 H 33 H Blood Pressure 70/52 L 102/73 O2 Saturation 75 L 82 L 73 L Oxygen Delivery Method O2 Source Mechanical ventilator Mechanical ventilator Mechanical ventilator Fraction of Inspired Oxygen (FIO2) Pain Intensity 07/17/25 16:01 07/17/25 16:05 07/17/25 16:10 Temperature 38.3 C H 38.3 C H Temperature Source Bladder Bladder Pulse Rate 105 H 104 H Respiratory Rate 33 H 30 H Blood Pressure 169/75 H 164/132 H O2 Saturation 98 Oxygen Delivery Method O2 Source Mechanical ventilator Mechanical ventilator Fraction of Inspired Oxygen (FIO2) 75 Pain Intensity 07/17/25 16:15 07/17/25 16:20 07/17/25 16:29 Temperature 38.3 C H 38.3 C H 38.3 C H Temperature Source Bladder Bladder Bladder Pulse Rate 100 103 H 102 H Respiratory Rate 33 H 33 H 34 H Blood Pressure 103/68 95/75 95/71 O2 Saturation 99 98 98 Oxygen Delivery Method O2 Source Mechanical ventilator Mechanical ventilator Mechanical ventilator Fraction of Inspired Oxygen (FIO2) Pain Intensity 07/17/25 16:30 07/17/25 16:35 07/17/25 16:40 Temperature 38.3 C H 38.3 C H 38.4 C H Temperature Source Bladder Bladder Bladder Pulse Rate 101 H 100 100 Respiratory Rate 33 H 33 H 33 H Blood Pressure 98/68 103/71 84/64 L O2 Saturation 98 93 98 Oxygen Delivery Method O2 Source Mechanical ventilator Mechanical ventilator Mechanical ventilator Fraction of Inspired Oxygen (FIO2) Pain Intensity 07/17/25 16:45 07/17/25 16:50 Temperature 38.5 C H 38.5 C H Temperature Source Bladder Bladder Pulse Rate 99 98 Respiratory Rate 34 H 34 H Blood Pressure 102/58 L 85/66 L O2 Saturation 95 93 Oxygen Delivery Method O2 Source Mechanical ventilator Mechanical ventilator Fraction of Inspired Oxygen (FIO2) Pain Intensity Oxygen O2 Source Mechanical ventilator EKG (time done) 1520: EKG releavant findings:: EKG personally interpreted by author of this note. Relevant findings are: Rate: Other (103 bpm. Sinus tachycardia. Normal axis. Normal SC interval. Narrow QRS. Nonspecific ST changes.) Labs Labs: Laboratory Tests 07/17/25 07/17/25 07/17/25 15:15 15:20 15:36 WBC 5.3 RBC 4.15 L Hgb 12.4 L Hct 42.6 MCV 102.7 H MCH 29.9 MCHC 29.1 L RDW 16.1 H Plt Count 142 MPV 9.1 Neut # (Auto) 1.8 Lymph # (Auto) 2.5 Faulk # (Auto) 0.3 Eos # (Auto) 0.0 Baso # (Auto) 0.0 Absolute Nucleated RBC 0.30 Band Neuts % (Manual) Not Reportable Abnorm Lymph % (Manual) Not Reportable Nucleated RBC % 5.6 Neutrophils # (Manual) Not Reportable Lymphocytes # (Manual) Not Reportable Monocytes # (Manual) Not Reportable Eosinophils # (Manual) Not Reportable Basophils # (Manual) Not Reportable Differential Comment MANUAL=AUTO DIFF Manual Slide Review Indicated WBC Morphology NORMAL APPEARANCE Platelet Estimate NORMAL (130-450,000) Platelet Morphology NORMAL APPEARANCE RBC Morph Micro Appear 1+ MACROCYTOSIS Bld Gas Analysis Time Sample Site ABG pH ABG pCO2 ABG pO2 ABG HCO3 ABG Total CO2 ABG O2 Saturation ABG Base Excess Jimmy Test Respiration Rate O2 Delivery Device Vent Mode FiO2 Tidal Volume PEEP Sodium 144 Potassium 4.9 H Chloride 101 Carbon Dioxide 34 H Anion Gap 9.0 BUN 33 H Creatinine 3.0 H Estimated GFR (MDRD) 22 L Glucose 77 Calcium 8.8 Total Bilirubin 0.3 AST 191 H ALT 127 H Alkaline Phosphatase 117 Total Protein 7.0 Albumin 4.2 Globulin 2.8 Albumin/Globulin Ratio 1.5 Urine Color YELLOW Urine Clarity CLOUDY Urine pH 6.0 Ur Specific [place] >=1.030 H Urine Protein 30 H Urine Glucose (UA) NEGATIVE Urine Ketones NEGATIVE Urine Occult Blood MODERATE Urine Nitrite NEGATIVE Urine Bilirubin NEGATIVE Urine Urobilinogen 0.2 (NORMAL) Ur Leukocyte Esterase NEGATIVE Urine RBC 6-10 H Urine WBC 0-3 Ur Squamous Epith Cells NONE SEEN Urine Bacteria Few Urine Casts 3-5 Hyaline Casts Ur Microscopic Review INDICATED Urine Culture Comments NOT INDICATED Urine Creatinine 161.2 Urine Sodium 82.9 Salicylates < 1.5 Urine Opiates Screen NEGATIVE Ur Buprenorphine Scrn POSITIVE H Ur Oxycodone Screen NEGATIVE Urine Methadone Screen NEGATIVE Urine Fentanyl Screen Negative Acetaminophen 0.6 Ur Barbiturates Screen NEGATIVE Ur Tricyclics Screen NEGATIVE Ur Phencyclidine Scrn NEGATIVE Ur Amphetamine Screen NEGATIVE U Methamphetamines Scrn NEGATIVE U Benzodiazepines Scrn NEGATIVE Urine Cocaine Screen NEGATIVE U Cannabinoids Screen POSITIVE H Ur Drug Screen Comment CUTOFF CONC BELOW: Ethyl Alcohol < 10.0 07/17/25 15:40 WBC RBC Hgb Hct MCV MCH MCHC RDW Plt Count MPV Neut # (Auto) Lymph # (Auto) Faulk # (Auto) Eos # (Auto) Baso # (Auto) Absolute Nucleated RBC Band Neuts % (Manual) Abnorm Lymph % (Manual) Nucleated RBC % Neutrophils # (Manual) Lymphocytes # (Manual) Monocytes # (Manual) Eosinophils # (Manual) Basophils # (Manual) Differential Comment Manual Slide Review WBC Morphology Platelet Estimate Platelet Morphology RBC Morph Micro Appear Bld Gas Analysis Time 1545 Sample Site RIGHT RADIAL ABG pH 7.17 L* ABG pCO2 73 H* ABG pO2 89 ABG HCO3 26.4 H ABG Total CO2 28.6 ABG O2 Saturation 97 ABG Base Excess -2.4 L Jimmy Test POSITIVE Respiration Rate 16 O2 Delivery Device VENTILATOR Vent Mode Not Reportable FiO2 75.00 Tidal Volume 550 PEEP 5 Sodium Potassium Chloride Carbon Dioxide Anion Gap BUN Creatinine Estimated GFR (MDRD) Glucose Calcium Total Bilirubin AST ALT Alkaline Phosphatase Total Protein Albumin Globulin Albumin/Globulin Ratio Urine Color Urine Clarity Urine pH Ur Specific [place] Urine Protein Urine Glucose (UA) Urine Ketones Urine Occult Blood Urine Nitrite Urine Bilirubin Urine Urobilinogen Ur Leukocyte Esterase Urine RBC Urine WBC Ur Squamous Epith Cells Urine Bacteria Urine Casts Ur Microscopic Review Urine Culture Comments Urine Creatinine Urine Sodium Salicylates Urine Opiates Screen Ur Buprenorphine Scrn Ur Oxycodone Screen Urine Methadone Screen Urine Fentanyl Screen Acetaminophen Ur Barbiturates Screen Ur Tricyclics Screen Ur Phencyclidine Scrn Ur Amphetamine Screen U Methamphetamines Scrn U Benzodiazepines Scrn Urine Cocaine Screen U Cannabinoids Screen Ur Drug Screen Comment Ethyl Alcohol Rads (name of study) cxr, cxr: Relevant Findings:: Final report received PD Medical Decision Making ED course Complexity details: reviewed results, re-evaluated patient, considered differential, d/w family and d/w client experience consultant ED course: Patient with an apparent drug overdose, pinpoint pupils bilaterally. He was given IV fluids, started on Levophed and Precedex. Maintained on oxygen. NG tube placed. Patient did have emesis after a dose of 2 mg of Narcan. No reported falls or trauma. No scalp hematomas. No palpable fractures on the c- spine or skull. Does have a history of COPD and was given a DuoNeb treatment just prior to arrival by EMS. This may need to be repeated in the ICU. Creatinine is elevated above normal, normal is around 1, he is at 3.0. Given several liters of IV fluid. Will admit for further care. Discussed the case with the hospitalist. Patient did have a mildly elevated temperature just prior to admission to the ICU, will be followed up by hospitalist. This document was made in part using voice recognition software. While efforts are made to proofread this document, sound alike and grammatical errors may occur. Critical Care Critical Care Provided: Yes Time(min): 45 Time Includes: Direct patient care, Review records, Reassess patient, Document care, Coordinate care, Medical consult, Family consult for tx dec and See progress note Data interpretation: See progress note Procedures excluded from critical care time: See progress note Discharge Plan Discharge Patient Disposition: 66 [facility] DC/Xfer Condition: Serious Clinical Impression: MARIA DEL CARMEN (acute kidney injury), Obtundation Overdose Qualifiers: Encounter type: initial encounter Injury intent: undetermined intent Qualified Code(s): T50.904A - Poisoning by unspecified drugs, medicaments and biological substances, undetermined, initial encounter Respiratory failure Qualifiers: Chronicity: acute Respiratory failure complication: unspecified whether with hypoxia or hypercapnia Qualified Code(s): J96.00 - Acute respiratory failure, unspecified whether with hypoxia or hypercapnia Interventions: ED Admission Assessment Last Done: 07/17/25 17:30 Vitals documented within 30 minutes of discharge?: Yes
[2025-07-17 15:54] LABS: ABG BASE EXCESS -2.4 mmol/L (-2.0-3.0); ABG HCO3 26.4 mmol/L (22.0-26.0); ABG OXYGEN SATURATION 97 % (95-98); ABG PO2 89 mmHg (83-108); ABG TCO2 28.6 mmol/L (21.0-29.0)
[2025-07-17 15:55] LABS: ABG RESPIRATORY RATE 16 b/min
[2025-07-17 15:56] LABS: ABG FRACTION OF INSPIRED O2 75.00
[2025-07-17 15:59] LABS: PLATELET MORPHOLOGY NORMAL APPEARANCE (NORMAL); RBC MORPHOLOGY (MULTIPLE) 1+ MACROCYTOSIS (NORMAL)
[2025-07-17 16:00] LABS: PLATELET ESTIMATE, MANUAL NORMAL (130-450,000) (NORMAL); WBC MORPHOLOGY (MULTIPLE) NORMAL APPEARANCE (NORMAL)
[2025-07-17 16:01] LABS: ABG PCO2 73 mmHg (34-45); ABG PH 7.17 (7.35-7.45)
[2025-07-17 16:05] LABS: ETOH - ETHANOL < 10.0 mg/dL
--- NOTE | 2025-07-17 16:14 | XRAY Report ---
PROCEDURE: XR Chest for Line Placement INDICATIONS: NG tube, ETT advanced TECHNIQUE: One view of the chest was acquired. COMPARISON: Same day radiograph FINDINGS AND IMPRESSION: ET tube tip projects over the distal trachea. Enteric tube tip projects over the distal stomach. Percutaneous pacing pads in place. Right perihilar, midlung, and suprahilar opacity, with opacification at the right lung apex. This could represent airspace disease or underlying lesion. Surveillance imaging is recommended to ensure resolution. Heart size is at the upper limit of normal. Reviewed by: Jean Claude Boudreaux MD on 07/17/2025 4:11 PM PDT Approved by: Jean Claude Boudreaux MD on 07/17/2025 4:11 PM PDT Station ID: [id number]
--- NOTE | 2025-07-17 16:56 | HISTORY & PHYSICAL EXAMINATION ---
Chief Complaint Chief Complaint Chief Complaint: Unresponsive, found down History of Present Illness Admitted From Admitted From:: ED History Obtained From Records Reviewed: [facility] History obtained from: ED, EMS, Family Exam Limitations: Patient is sedated and ventillated History of Present Illness HPI Comment/Other: This is a 49-year-old male with past medical history of Remote polysubstance use, hypothyroidism, hypertension, COPD on home O2, hyperlipidemia, chronic venous insufficiency, and depression Who was found down by family and after being found to be unarousable EMS was called. EMS found the patient with agonal respirations. They found him breathing, but were not able to palpate a pulse and therefore started CPR. He got 1 mg of epinephrine in the field. IO was placed in the right lower leg but was nonfunctional by the time he was here and has since been removed. There was initially suspicion the patient had overdosed in the field. He has a history of heavy narcotic use and amphetamines. Notably had a period of prolonged sobriety starting in December 2023. He has since relapsed somewhat. He most recently has been doing large amounts of nitrous oxide, but is unclear that he is actually been doing any narcotics otherwise. He he unfortunately did receive fentanyl in the field so his UDS will not necessarily be indicative of his drug use. His family does not know of any recent narcotic or amphetamine use. He has been quite fatigued and at home for the last several days prior to admission, and they are dubious that he would have the energy to seek out additional drugs. They are actively working to see if any of his old dealer contacts have been in touch with him. Apparently, he has a protracted health decline over the last couple of years. He is on 4 L of oxygen continuously and does run out a few times when traveling around [facility]. His family is found him doing whippets and becoming hypoxic because he is off of his oxygen. He additionally removes his oxygen while sleeping at times. He was not wearing his oxygen when he was found by EMS. They are unclear if he is taking his medicines as directed. He was recently prescribed a prolonged high-dose steroid taper starting at 50 mg, unclear if he tapered but has stopped within the last couple of weeks which is also suspicious given his acute decompensation. He got 10 mg of Versed and 200 mcg of fentanyl after being intubated in the field he has since had 3 peripheral IVs placed, started on dextromethorphan, and is still intubated. He did receive IV and intranasal Narcan in the ED. He is in shock after being intubated. He is on Levophed at 8 mcg/min, though his pressor requirement is downtrending already in the ED. Review of systems as unobtainable given he is intubated and sedated. Meds/Allgy Home Medications Ambulatory Orders Medication Instructions Recorded Confirmed albuterol sulfate 90 mcg/actuation 1 - 2 puff IH Q4HR PRN soa 09/30/23 07/17/25 breath activated powder inhaler (ProAir RespiClick) gabapentin 300 mg capsule 300 mg PO BID 09/30/2307/17 losartan 100 mg tablet 100 mg PO DAILY #30 tabs 07/17/25 albuterol sulfate 2.5 mg/3 mL 2.5 mg inhalation Q6H NJ N 09/12/24 07/17/25 (0.083 %) solution for nebulization shortness of breat h or wheezing atorvastatin 40 mg tablet 40 mg PO QPM 09/12/24 budesonide-formoterol HFA 160 2 puff inhalation TID 07/17/25 mcg-4.5 mcg/actuation aerosol inhaler buprenorphine 8 mg-naloxone 2 mg 1 film sublingual TID 09/12/24 07/17/25 sublingual film (Suboxone) bupropion HCl 150 mg 24 hr tablet, 450 mg PO DAILY 07/2707/17/25 extended release fluoxetine 10 mg capsule 10 mg PO DAILY 09/12/2407/04 Held on 07/17/25. Instructions: Per Patient ipratropium 0.5 mg-albuterol 3 mg 3 ml inhalation BID 09/12/24 07/17/25 (2.5 mg base)/3 mL nebulization soln metformin 500 mg tablet,extended 500 mg PO DAILY 09/1207/17/25 release 24 hr oxybutynin chloride 5 mg tablet 5 mg PO DAILY 09/12/24 07/17/25 roflumilast 250 mcg tablet 250 mcg PO DAILY 09/12/24 1 tiotropium bromide 18 mcg capsule 1 cap inhalation MANUEL LY 09/12/24 07/17/25 with inhalation device tizanidine 4 mg tablet 4 mg PO BID PRN anxiety 09/0307/17/25 trazodone 50 mg tablet 150 mg PO HS PRN insomnia 07/17/25 furosemide 20 mg tablet 20 mg PO DAILY 07/17/2507/04 levothyroxine 175 mcg tablet 175 mcg PO DAILY 07/17/25 07/17/25 triamcinolone acetonide 0.1 % 1 applic topical BID PRN rash 07/17/25 07/17/25 topical cream Allergies Allergies Allergy/AdvReac Type Severity Reaction Status Date / Time Penicillins Allergy Unknown Verified 09/12/24 22:31 PFSH Active Problems All Active Problems (Updated 07/17/25 @ 18:37 by Samy Jackson DO) Shock (Acute) Obtundation (Acute) Hypercapnic respiratory failure (Acute) Elevated liver transaminase level (Acute) MARIA DEL CARMEN (acute kidney injury) (Acute) Overdose (Acute) Medical History Medical History (Updated 07/17/25 @ 18:37 by Samy Jackson DO) On home O2 Hypothyroid High cholesterol Hypertension COPD (chronic obstructive pulmonary disease) Surgical History Surgical History (Updated 09/12/24 @ 22:14 by Izabella Li RN) History of ankle surgery Social History Social History (Updated 09/12/24 @ 22:14 by Izabella Li, RN) Smoking Status: Smoker with current status unk Patient requests smoking cessation consult: No Do you feel safe in your home environment?: Yes History of physical, verbal, emotional, or financial abuse?: No Frequency: Daily Review of Systems Status of ROS: unobtainable due to endotracheal tube, unobtainable due to medical condition and unobtainable due to mental status Exam Exam Vital Signs: Vital Signs x48h Temp Pulse Pulse Resp BP BP Pulse Ox 07/17/25 17:33 38.6 C H 103 H 25 H 93/69 87 L 07/17/25 17:09 38.6 C H 101 H 99/71 94 07/17/25 17:05 38.5 C H 102 H 28 H 95/70 95 07/17/25 17:00 38.5 C H 98 36 H 89/71 L 85 L 07/17/25 16:55 38.5 C H 99 33 H 89/77 L 95 07/17/25 16:50 38.5 C H 98 34 H 85/66 L 93 07/17/25 16:45 38.5 C H 99 34 H 102/58 L 95 07/17/25 16:40 38.4 C H 100 33 H 84/64 L 98 07/17/25 16:35 38.3 C H 100 33 H 103/71 93 07/17/25 16:30 38.3 C H 101 H 33 H 98/68 98 07/17/25 16:29 38.3 C H 102 H 34 H 95/71 98 07/17/25 16:20 38.3 C H 103 H 33 H 95/75 98 07/17/25 16:15 38.3 C H 100 33 H 103/68 99 07/17/25 16:10 38.3 C H 104 H 30 H 164/132 H 98 07/17/25 16:05 38.3 C H 105 H 33 H 169/75 H 07/17/25 16:00 38.3 C H 105 H 33 H 73 L 07/17/25 15:55 37.9 C 103 H 32 H 102/73 82 L 07/17/25 15:50 37.8 C 105 H 36 H 70/52 L 75 L 07/17/25 15:45 37.8 C 104 H 30 H 75 L 07/17/25 15:40 37.6 C 105 H 28 H 76/54 L 61 L 07/17/25 15:35 37.6 C 107 H 22 93/66 91 L 07/17/25 15:30 37.3 C 100 16 95/58 L 85 L 07/17/25 15:23 105 H 85/61 L 84 L 07/17/25 15:18 96 07/17/25 15:15 36.6 C 120 H 25 H 77 L 07/17/25 15:06 110 H GEN: Intubated and sedated. HEENT: NC/AT, normal appearance of external ears and nose. ETT in place. OGT in place Cardiac: Regular rate and rhythm, no murmurs. No visible JVP elevation. Pulm: Rhonchi present in the lungs bilaterally. No cough. No wheezing appreciated. Breath sounds bilaterally. Abdomen: Obese, distended abdomen. Soft. Does not wince on palpation. Extremities: IO site in his right lower extremity is dressed. Bilateral feet are cool to the touch with weakly and intermittently palpable pulses Neuro: Face is symmetric. Pupils are constricted and equal bilaterally. Psych: Unable to assess. Conclusion/Plan Problem List (1) Obtundation: Plan: Overall unclear etiology. Initially suspicious for drug overdose, though his family story is not wholly consistent with this. He has a history remotely of using narcotics and amphetamines. More what lately he has been using whippets exclusively. Patient has been apparently more somnolent over the preceding weeks, worsened over the last 2 to 3 days prior to admission. No reported fevers at home. He has been coughing a lot, but no other clear localizing symptoms. He is currently with bilateral pinpoint pupils, consistent with narcotic overdose. I do question the utility of more reversal agents given that he is currently intubated and sedated. Last blood gas was shortly after being intubated, and he demonstrated respiratory acidosis (pH 7.17, pCO2 73). CXR shows ETT well-positioned - UDS, APAP, Salicylate level - Check TSH, r/o myxedema coma - Treat hypercapnia as below - Pulse dose steroids as below - Likely allow him to metabolize substances organically over the coming days - Continue sedation with Precedex, RASS goal <-1, Restraints ordered - Wean pressors - Trend CMP and CBC a.m. - Repeat ABG at 1730 - Given intentional overdose, will need psych evaluation after he wakes up (2) Hypercapnic respiratory failure: (3) COPD (chronic obstructive pulmonary disease): Plan: Per his history. Unclear if he is actually taking any of his home meds. He has filled them recently. He was recently on a steroid taper from 50 mg prescribed at end of May. He was reportedly supposed to taper this, unclear if he tapered or abruptly discontinued. He is normally on budesonide/formoterol, Tiotropium as needed albuterol, with DuoNebs at home. He is also on Roflumilast but no fill history. His fill history is suggestive of a recent COPD exacerbation in May. - Noted, he is intubated at this time - Will give steroids as adrenal insufficiency is on the differential, Solu- Medrol 125 3 times daily - May be difficult to extubate given chronic respiratory issues - Appreciate RT - SBT daily (4) MARIA DEL CARMEN (acute kidney injury): Plan: Baseline creatinine around 1.0. Creatinine on admission 3.0. Patient is still making urine. Clinically he is not dry, on diuretics at baseline. Will withhold further fluids right now. - Strict I/O - CMP a.m. - Will get FeUrea - Per the family, if his kidney function is to worsen [facility] is within his goals of care. He would need to transfer at this point. (5) Shock: Plan: Overall unclear etiology of his shock. He is recently titrated off steroids, and suspicious for adrenal insufficiency. Septic shock is also possible, he has been having low-grade fevers since he has been on the floor. He was reporting cough at home. - Starting antibiotics - On Levophed titrate with MAP goal of 65, consider starting vasopressin - Holding feeds while on vasopressors - Starting steroids as above. (6) High cholesterol: Plan: Per his fill history, he is on atorvastatin daily - Will hold for now, Monitoring CMP as above (7) Hypothyroid: Plan: History of hypothyroidism, Synthroid 175 mcg last filled today at his pharmacy. - Will check TSH, resume Synthroid in a.m. Qualifiers: Hypothyroidism type: acquired Qualified Code(s): E03.9 - Hypothyroidism, unspecified (8) Hypertension: Plan: Per history, on furosemide, losartan. - Will monitor fluids continuously, spot dose diuretics as needed - Strict I/O, daily weights - Holding antihypertensives as above while on pressors. Qualifiers: Hypertension type: primary hypertension Qualified Code(s): I10 - Essential (primary) hypertension (9) Elevated liver transaminase level: Plan: Elevated in a hepatocellular pattern. No recent labs to establish what his baseline is. Notably his liver function was normal 2 years ago. Bilirubin is normal. Low suspicion for obstructive process Suspect this may be related to some of his substances he ingested. - Monitor CMP a.m. - Defer further abdominal imaging at this time - APAP level as above Plan I spent a total of 87 minutes in the care of this patient today. This time was spent reviewing his labs, vital signs, imaging, interviewing family and examining the patient, and discussing his plan of care with staff and family. 87 minutes of this was critical care time including advance care planning. Lab Results Lab results reviewed: Yes 07/17/25 15:15 07/17/25 15:15 Diagnostic Imaging Results Diagnostic Imaging Results: positive Final report reviewed and Read independently EKG Results EKG Interpreted Independently: Yes EKG Comparison: Old EKG unavailable and No prior EKG EKG Findings: Sinus tachycardia.
--- OUTSIDE RECORDS SUMMARY | 2025-07-17 16:57 | EXTERNAL MEDICAL SUMMARY RPT | Continuity of Care Document ---
Author Organization [facility] Address [address] [place] [id number] Phone Care Team Providers Care Electrical Designer Name Role Phone Nayan Morris Unavailable Unavailable Allergies and Intolerances date description facility reaction severity 2025-05-04 10:20:53 [facility] (no reactio n) (no severity) 2025-05-18 15:09:30 [facility] (no reactio n) (no severity) 2025-07-03 14:44:09 [facility] (no reactio n) (no severity) 2025-05-04 10:20:53 [facility] (no reactio n) (no severity) 2025-05-18 15:09:30 [facility] (no reactio n) (no severity) 2025-07-03 14:44:09 [facility] (no reactio n) (no severity) Medications date description facility 2025-05-04 00:00 Triamcinolone Acetonide [facility] 2025-05-04 00:00 Roflumilast [facility] 2025-05-04 00:00 Budesonide-Formoterol [facility] 2025-05-04 00:00 Ipratropium-Albuterol [facility] 2025-05-04 00:00 Levothyroxine [facility] 2025-05-04 00:00 Prednisone [facility] 2025-07-03 00:00 Prednisone [facility] 2025-05-04 00:00 Albuterol Sulfate [facility] 2025-07-03 00:00 Albuterol Sulfate [facility] 2025-05-04 00:00 Furosemide [facility] 2025-05-18 00:00 Tizanidine [facility] 2025-07-03 00:00 Fluoxetine [facility] 2025-05-04 00:00 [facility] 2025-05-04 00:00 Atorvastatin [facility] 2025-05-04 00:00 Albuterol Sulfate [facility] 2025-05-04 00:00 Metformin [facility] 2025-05-04 00:00 Levothyroxine [facility] 2025-05-04 00:00 Losartan [facility] 2025-05-04 00:00 Bupropion Hcl [facility] Problems date description facility 2025-05-04 10:59 Hypothyroidism, [facility] 2025-05-04 10:59 Hyperlipidemia, [facility] 2025-05-04 10:59 Impaired fasting glucose [facility] 2025-05-04 10:59 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 2025-07-03 00:00 Lung nodule [facility] Results/Labs test date facility value unit notes Result panel 1 Specimen collection (procedure) (no date) [facility] (missing) (missing) (missing) Result panel 2 Specimen collection (procedure) (no date) [facility] (missing) (missing) (missing) Result panel 3 Specimen collection (procedure) (no date) [facility] (missing) (missing) (missing) Result panel 4 Specimen collection (procedure) (no date) [facility] (missing) (missing) (missing) Result panel 5 Specimen collection (procedure) (no date) [facility] (missing) (missing) (missing) Result panel 6 Specimen collection (procedure) (no date) [facility] (missing) (missing) (missing) Result panel 7 Specimen collection (procedure) (no date) [facility] (missing) (missing) (missing) Result panel 8 Specimen collection (procedure) (no date) [facility] (missing) (missing) (missing) Result panel 9 Specimen collection (procedure) (no date) [facility] (missing) (missing) (missing) Result panel 10 Specimen collection (procedure) (no date) [facility] (missing) (missing) (missing) Result panel 11 Specimen collection (procedure) (no date) [facility] (missing) (missing) (missing) Result panel 12 Specimen collection (procedure) (no date) [facility] (missing) (missing) (missing) Result panel 13 Specimen collection (procedure) (no date) [facility] (missing) (missing) (missing) Result panel 14 Specimen collection (procedure) (no date) [facility] (missing) (missing) (missing) Result panel 15 Specimen collection (procedure) (no date) [facility] (missing) (missing) (missing) Result panel 16 Specimen collection (procedure) (no date) [facility] (missing) (missing) (missing) Result panel 17 Specimen collection (procedure) (no date) [facility] (missing) (missing) (missing) Result panel 18 Specimen collection (procedure) (no date) [facility] (missing) (missing) (missing) Result panel 19 Specimen collection (procedure) (no date) [facility] (missing) (missing) (missing) Result panel 20 Specimen collection (procedure) (no date) [facility] (missing) (missing) (missing) Result panel 21 Specimen collection (procedure) (no date) [facility] (missing) (missing) (missing) Result panel 22 Specimen collection (procedure) (no date) [facility] (missing) (missing) (missing) Result panel 23 Specimen collection (procedure) (no date) [facility] (missing) (missing) (missing) Result panel 24 Specimen collection (procedure) (no date) [facility] (missing) (missing) (missing) Result panel 25 Specimen collection (procedure) (no date) [facility] (missing) (missing) (missing) Result panel 26 Specimen collection (procedure) (no date) [facility] (missing) (missing) (missing) Result panel 27 Specimen collection (procedure) (no date) [facility] (missing) (missing) (missing) Result panel 28 Specimen collection (procedure) (no date) [facility] (missing) (missing) (missing) Result panel 29 Specimen collection (procedure) (no date) [facility] (missing) (missing) (missing) Result panel 30 Specimen collection (procedure) (no date) [facility] (missing) (missing) (missing) Result panel 31 Specimen collection (procedure) (no date) [facility] (missing) (missing) (missing) Result panel 32 Specimen collection (procedure) (no date) [facility] (missing) (missing) (missing) Result panel 33 Specimen collection (procedure) (no date) [facility] (missing) (missing) (missing) Result panel 34 Specimen collection (procedure) (no date) [facility] (missing) (missing) (missing) Result panel 35 Specimen collection (procedure) (no date) [facility] (missing) (missing) (missing) Result panel 36 Specimen collection (procedure) (no date) [facility] (missing) (missing) (missing) Result panel 37 Specimen collection (procedure) (no date) [facility] (missing) (missing) (missing) Result panel 38 Specimen collection (procedure) (no date) [facility] (missing) (missing) (missing) Result panel 39 Specimen collection (procedure) (no date) [facility] (missing) (missing) (missing) Result panel 40 Specimen collection (procedure) (no date) [facility] (missing) (missing) (missing) Result panel 41 Specimen collection (procedure) (no date) [facility] (missing) (missing) (missing) Result panel 42 Specimen collection (procedure) (no date) [facility] (missing) (missing) (missing) Result panel 43 Specimen collection (procedure) (no date) [facility] (missing) (missing) (missing) Result panel 44 Specimen collection (procedure) (no date) [facility] (missing) (missing) (missing) Result panel 45 Specimen collection (procedure) (no date) [facility] (missing) (missing) (missing) Result panel 46 Specimen collection (procedure) (no date) [facility] (missing) (missing) (missing) Result panel 47 Specimen collection (procedure) (no date) [facility] (missing) (missing) (missing) Result panel 48 Specimen collection (procedure) (no date) [facility] (missing) (missing) (missing) Result panel 49 Specimen collection (procedure) (no date) [facility] (missing) (missing) (missing) Result panel 50 Specimen collection (procedure) (no date) [facility] (missing) (missing) (missing) Result panel 51 Specimen collection (procedure) (no date) [facility] (missing) (missing) (missing) Result panel 52 Specimen collection (procedure) (no date) [facility] (missing) (missing) (missing) Result panel 53 Specimen collection (procedure) (no date) [facility] (missing) (missing) (missing) Result panel 54 Specimen collection (procedure) (no date) [facility] (missing) (missing) (missing) Result panel 55 Specimen collection (procedure) (no date) [facility] (missing) (missing) (missing) Result panel 56 Specimen collection (procedure) (no date) [facility] (missing) (missing) (missing) Result panel 57 Specimen collection (procedure) (no date) [facility] (missing) (missing) (missing) Result panel 58 Specimen collection (procedure) (no date) [facility] (missing) (missing) (missing) Result panel 59 Specimen collection (procedure) (no date) [facility] (missing) (missing) (missing) Result panel 60 Specimen collection (procedure) (no date) [facility] (missing) (missing) (missing) Result panel 61 Specimen collection (procedure) (no date) [facility] (missing) (missing) (missing) Result panel 62 Specimen collection (procedure) (no date) [facility] (missing) (missing) (missing) Result panel 63 Specimen collection (procedure) (no date) [facility] (missing) (missing) (missing) Result panel 64 Specimen collection (procedure) (no date) [facility] (missing) (missing) (missing) Result panel 65 Specimen collection (procedure) (no date) [facility] (missing) (missing) (missing) Result panel 66 Specimen collection (procedure) (no date) [facility] (missing) (missing) (missing) Result panel 67 Specimen collection (procedure) (no date) [facility] (missing) (missing) (missing) Result panel 68 Specimen collection (procedure) (no date) [facility] (missing) (missing) (missing) Result panel 69 Specimen collection (procedure) (no date) [facility] (missing) (missing) (missing) Result panel 70 Specimen collection (procedure) (no date) [facility] (missing) (missing) (missing) Result panel 71 Specimen collection (procedure) (no date) [facility] (missing) (missing) (missing) Result panel 72 Specimen collection (procedure) (no date) [facility] (missing) (missing) (missing) Result panel 73 Specimen collection (procedure) (no date) [facility] (missing) (missing) (missing) Result panel 74 Specimen collection (procedure) (no date) [facility] (missing) (missing) (missing) Result panel 75 Specimen collection (procedure) (no date) [facility] (missing) (missing) (missing) Result panel 76 Specimen collection (procedure) (no date) [facility] (missing) (missing) (missing) Result panel 77 Specimen collection (procedure) (no date) [facility] (missing) (missing) (missing) Result panel 78 Specimen collection (procedure) (no date) [facility] (missing) (missing) (missing) Result panel 79 Specimen collection (procedure) (no date) [facility] (missing) (missing) (missing) Result panel 80 Specimen collection (procedure) (no date) [facility] (missing) (missing) (missing) Result panel 81 Specimen collection (procedure) (no date) [facility] (missing) (missing) (missing) Result panel 82 Specimen collection (procedure) (no date) [facility] (missing) (missing) (missing) Result panel 83 Specimen collection (procedure) (no date) [facility] (missing) (missing) (missing) Result panel 84 Specimen collection (procedure) (no date) [facility] (missing) (missing) (missing) Result panel 85 Specimen collection (procedure) (no date) [facility] (missing) (missing) (missing) Result panel 86 Specimen collection (procedure) (no date) [facility] (missing) (missing) (missing) Result panel 87 Specimen collection (procedure) (no date) [facility] (missing) (missing) (missing) Result panel 88 Specimen collection (procedure) (no date) [facility] (missing) (missing) (missing) Result panel 89 Specimen collection (procedure) (no date) [facility] (missing) (missing) (missing) Result panel 90 Specimen collection (procedure) (no date) [facility] (missing) (missing) (missing) Result panel 91 Specimen collection (procedure) (no date) [facility] (missing) (missing) (missing) Result panel 92 Specimen collection (procedure) (no date) [facility] (missing) (missing) (missing) Result panel 93 Specimen collection (procedure) (no date) [facility] (missing) (missing) (missing) Result panel 94 Specimen collection (procedure) (no date) [facility] (missing) (missing) (missing) Result panel 95 Specimen collection (procedure) (no date) [facility] (missing) (missing) (missing) Result panel 96 Specimen collection (procedure) (no date) [facility] (missing) (missing) (missing) Result panel 97 Specimen collection (procedure) (no date) [facility] (missing) (missing) (missing) Result panel 98 Specimen collection (procedure) (no date) [facility] (missing) (missing) (missing) Result panel 99 Specimen collection (procedure) (no date) [facility] (missing) (missing) (missing) Result panel 100 Specimen collection (procedure) (no date) [facility] (missing) (missing) (missing) Result panel 101 Specimen collection (procedure) (no date) [facility] (missing) (missing) (missing) Result panel 102 Specimen collection (procedure) (no date) [facility] (missing) (missing) (missing) Result panel 103 Specimen collection (procedure) (no date) [facility] (missing) (missing) (missing) Result panel 104 Specimen collection (procedure) (no date) [facility] (missing) (missing) (missing) Result panel 105 Specimen collection (procedure) (no date) [facility] (missing) (missing) (missing) Result panel 106 Specimen collection (procedure) (no date) [facility] (missing) (missing) (missing) Result panel 107 Specimen collection (procedure) (no date) [facility] (missing) (missing) (missing) Result panel 108 Specimen collection (procedure) (no date) [facility] (missing) (missing) (missing) Result panel 109 Specimen collection (procedure) (no date) [facility] (missing) (missing) (missing) Result panel 110 Specimen collection (procedure) (no date) [facility] (missing) (missing) (missing) Result panel 111 Specimen collection (procedure) (no date) [facility] (missing) (missing) (missing) Result panel 112 Specimen collection (procedure) (no date) [facility] (missing) (missing) (missing) Result panel 113 Specimen collection (procedure) (no date) [facility] (missing) (missing) (missing) Result panel 114 Specimen collection (procedure) (no date) [facility] (missing) (missing) (missing) Result panel 115 Specimen collection (procedure) (no date) [facility] (missing) (missing) (missing) Result panel 116 Specimen collection (procedure) (no date) [facility] (missing) (missing) (missing) Result panel 117 Specimen collection (procedure) (no date) [facility] (missing) (missing) (missing) Result panel 118 Specimen collection (procedure) (no date) [facility] (missing) (missing) (missing) Result panel 119 Specimen collection (procedure) (no date) [facility] (missing) (missing) (missing) Result panel 120 Specimen collection (procedure) (no date) [facility] (missing) (missing) (missing) Result panel 121 Specimen collection (procedure) (no date) [facility] (missing) (missing) (missing) Result panel 122 Specimen collection (procedure) (no date) [facility] (missing) (missing) (missing) Result panel 123 Specimen collection (procedure) (no date) [facility] (missing) (missing) (missing) Result panel 124 Specimen collection (procedure) (no date) [facility] (missing) (missing) (missing) Result panel 125 Specimen collection (procedure) (no date) [facility] (missing) (missing) (missing) Result panel 126 Specimen collection (procedure) (no date) [facility] (missing) (missing) (missing) Result panel 127 Specimen collection (procedure) (no date) [facility] (missing) (missing) (missing) Result panel 128 Specimen collection (procedure) (no date) [facility] (missing) (missing) (missing) Result panel 129 Specimen collection (procedure) (no date) [facility] (missing) (missing) (missing) Result panel 130 Specimen collection (procedure) (no date) [facility] (missing) (missing) (missing) Result panel 131 Specimen collection (procedure) (no date) [facility] (missing) (missing) (missing) Result panel 132 Specimen collection (procedure) (no date) [facility] (missing) (missing) (missing) Result panel 133 Specimen collection (procedure) (no date) [facility] (missing) (missing) (missing) Result panel 134 Specimen collection (procedure) (no date) [facility] (missing) (missing) (missing) Result panel 135 Specimen collection (procedure) (no date) [facility] (missing) (missing) (missing) Result panel 136 Specimen collection (procedure) (no date) [facility] (missing) (missing) (missing) Result panel 137 Specimen collection (procedure) (no date) [facility] (missing) (missing) (missing) Result panel 138 Specimen collection (procedure) (no date) [facility] (missing) (missing) (missing) Result panel 139 Specimen collection (procedure) (no date) [facility] (missing) (missing) (missing) Result panel 140 Specimen collection (procedure) (no date) [facility] (missing) (missing) (missing) Result panel 141 Specimen collection (procedure) (no date) [facility] (missing) (missing) (missing) Result panel 142 Specimen collection (procedure) (no date) [facility] (missing) (missing) (missing) Result panel 143 Specimen collection (procedure) (no date) [facility] (missing) (missing) (missing) Result panel 144 Specimen collection (procedure) (no date) [facility] (missing) (missing) (missing) Result panel 145 Specimen collection (procedure) (no date) [facility] (missing) (missing) (missing) Result panel 146 Specimen collection (procedure) (no date) [facility] (missing) (missing) (missing) Result panel 147 Specimen collection (procedure) (no date) [facility] (missing) (missing) (missing) Result panel 148 Specimen collection (procedure) (no date) [facility] (missing) (missing) (missing) Result panel 149 Specimen collection (procedure) (no date) [facility] (missing) (missing) (missing) Result panel 150 Specimen collection (procedure) (no date) [facility] (missing) (missing) (missing) Result panel 151 Specimen collection (procedure) (no date) [facility] (missing) (missing) (missing) Result panel 152 Specimen collection (procedure) (no date) [facility] (missing) (missing) (missing) Result panel 153 Specimen collection (procedure) (no date) [facility] (missing) (missing) (missing) Result panel 154 Hemoglobin A1c percentage 2025-05-04 10:56:07 [facility] 6.7 % (missing) Result panel 155 Triglyceride [Mass/volume] i n Serum or Plasma 2025-05-04 10:56:07 [facility] 169 mg/dL (m issing) Result panel 156 Cholesterol [Mass/volume] in Serum or Plasma 2025-05-04 10:56:07 [facility] 245 mg/dL (m issing) Result panel 157 Cholesterol in HDL [Mass/volume] in Serum or Plasma 2025-05-04 10:56:07 [facility] 42 mg/dL (miss ing) Result panel 158 Serum or plasma cholesterol in LDL measurement by calculation (mass/volume) 2025-05-04 10:56:07 [facility] 169 mg/dL (missing) Result panel 159 Thyroxine (T4) free [Mass/volume] in Serum or Plasma 2025-05-04 10:56:07 [facility] 0.25 ng/dL (miss ing) Result panel 160 Hemoglobin A1c percentage 2025-05-04 10:56:07 [facility] 6.7 % (missing) Result panel 161 Triglyceride [Mass/volume] i n Serum or Plasma 2025-05-04 10:56:07 [facility] 169 mg/dL ( issing) Result panel 162 Cholesterol [Mass/volume] in Serum or Plasma 2025-05-04 10:56:07 [facility] 245 mg/dL ( issing) Result panel 163 Cholesterol in HDL [Mass/volume] in Serum or Plasma 2025-05-04 10:56:07 [facility] 42 mg/dL ([facility]) Result panel 164 Serum or plasma cholesterol in LDL measurement by calculation (mass/volume) 2025-05-04 10:56:07 [facility] 169 mg/dL (missing) Result panel 165 Thyroxine (T4) free [Mass/volume] in Serum or Plasma 2025-05-04 10:56:07 [facility] 0.25 ng/dL ([facility]) Result panel 166 Triglycerides 2025-05-04 12:13 [facility] 169 mg/ dl NORMAL: <150 MG/DL BORDERLINE HIGH: 150-199 MG/DL HIGH: 200-499 MG/DL VERY HIGH: >500 MG/DL LDL Cholesterol Calculated 2025-05-04 12:13 [facility] 169 mg/dl OPTIMAL LESS THAN 100 MG/DL NEAR OR ABOVE OPTIMAL 100 - 129 MG/DL BORDERLINE HIGH 130 - 159 MG/DL HIGH 160 - 189 MG/DL VERY HIGH >= 190 MG/DL Cholesterol 2025-05-04 12:13 [facility] 245 mg/dl Desirable: <200 mg/dL Borderline High: 200-239 mg/dL High: >239 mg/dL HDL Cholesterol 2025-05-04 12:13 [facility] 42 m g/dl ATP-III GUID[place]IN[place] STATE HDL >60 mg/dL COUNT A 'NEGATIVE' RISK FACTOR. Result panel 167 TSH w/ Reflex to FT4 2025-05-04 12:42 [facility] 91.20 uiu/ml (missing) Result panel 168 Free T4, Direct Thyroxine 2025-05-04 13:22 [facility] 0.25 ng/dl (missing ) Hemoglobin A1C% w Est Avg Glu 2025-05-04 13:22 [facility] 6.7 % Hemoglob in A1c Estimated Average Glucose (mg/dl) 5% 97 6% 126 7% 154 8% 183 9% 212 10% 240 11% 269 12% 298 Individuals with Hemoglobin (Hb)A1c between 5.7-6.4% are at increased risk for diabetes. TSH w/ Reflex to FT4 2025-05-04 13:22 [facility] 91.20 uiu/ml (missing ) Result panel 169 BASOPHILS # (AUTO) 2025-07-17 15:15 [facility] 0.0 10 3/ul (missing) EOSINOPHILS # (AUTO) 2025-07-17 15:15 [facility] 0.0 10 3/ul (missing) MONOCYTES # (AUTO) 2025-07-17 15:15 [facility] 0.3 10 3/ul (missing) BILIRUBIN,TOTAL 2025-07-17 15:15 [facility] 0.3 mg/dl As of April 2023 testing method has changed, this may include reference ranges. NRBC ABSOLUTE COUNT (AUTO) 2025-07-17 15:15 [facility] 0.30 x10 3/ul (missing) RBC MORPHOLOGY (MULTIPLE) 2025-07-17 15:15 [facility] 1+ MACROCYTOSIS (missing ) (missing) ALBUMIN/GLOBULIN RATIO 2025-07-17 15:15 [facility] 1.5 (missing ) (missing) NEUTROPHILS # (AUTO) 2025-07-17 15:15 [facility] 1.8 10 3/ul (missing) CHLORIDE 2025-07-17 15:15 [facility] 101 mmol/l As of April 2023 testing method has changed, this may include reference ranges. MEAN CORPUSCULAR VOLUME 2025-07-17 15:15 [facility] 102.7 fl (missing) ALKALINE PHOSPHATASE 2025-07-17 15:15 [facility] 117 iu/l As of April 2023 testing method has changed, this may include reference ranges. HGB - HEMOGLOBIN 2025-07-17 15:15 [facility] 12.4 g/dl (missing) ALT ALANINE AMINOTRANSFERASE 2025-07-17 15:15 [facility] 127 iu/l As of April 2023 testing method has changed, this may include reference ranges. PLT - PLATELET COUNT 2025-07-17 15:15 [facility] 142 10 3/ul (missing) SODIUM 2025-07-17 15:15 [facility] 144 mmol/l (missing) RED CELL DISTRIBUTION WIDTH 2025-07-17 15:15 [facility] 16.1 % (missing) AST ASPARTATE AMINOTRANSFERASE 2025-07-17 15:15 [facility] 191 iu/l As of April 2023 testing method has changed, this may include reference ranges. LYMPHOCYTES # (AUTO) 2025-07-17 15:15 [facility] 2.5 10 3/ul (missing) GLOBULIN 2025-07-17 15:15 [facility] 2.8 g/dl (missing) GFR - MDRD 2025-07-17 15:15 [facility] 22 (missing ) The IDMS-traceable MDRD Study Equation has been validated extensively in and populations between the ages of 18 and 70 with impaired kidney function (eGFR < 60 mL/min/1.73m2) and has shown good performance for patients with all common causes of kidney disease. Although this equation has not been validated for patients older than 70, an MDRD-derived eGFR may still be a useful tool for providers caring for patients older than 70. References: http://www.nkde p.nih.gov/lab-e valuation/gfr/c kimaniatinine-stand ardization, last updated December 2011. MEAN CORPUSCULAR HGB CONC 2025-07-17 15:15 [facility] 29.1 g/dl (missing) MEAN CORPUSCULAR HEMOGLOBIN 2025-07-17 15:15 [facility] 29.9 pg (missing) CREATININE 2025-07-17 15:15 [facility] 3.0 mg/dl As of April 2023 testing method has changed, this may include reference ranges. BUN - BLOOD UREA NITROGEN 2025-07-17 15:15 [facility] 33 mg/dl As of April 2023 testing method has changed, this may include reference ranges. CARBON DIOXIDE - CO2 2025-07-17 15:15 [facility] 34 mmol/l As of April 2023 testing method has changed, this may include reference ranges. RED BLOOD COUNT 2025-07-17 15:15 [facility] 4.15 10 6/ul (missing) ALBUMIN 2025-07-17 15:15 [facility] 4.2 g/dl As of April 2023 testing method has changed, this may include reference ranges. POTASSIUM 2025-07-17 15:15 [facility] 4.9 mmol/l As of April 2023 testing method has changed, this may include reference ranges. HCT - HEMATOCRIT 2025-07-17 15:15 [facility] 42.6 % (missing) WHITE BLOOD COUNT 2025-07-17 15:15 [facility] 5.3 x10 3/ul (missing) NUCLEATED RED BLOOD CELLS AUTO 2025-07-17 15:15 [facility] 5.6 /100wbc (missing) TOTAL PROTEIN 2025-07-17 15:15 [facility] 7.0 g/dl As of April 2023 testing method has changed, this may include reference ranges. GLUCOSE 2025-07-17 15:15 [facility] 77 mg/dl As of April 2023 testing method has changed, this may include reference ranges. CALCIUM 2025-07-17 15:15 [facility] 8.8 mg/dl As of April 2023 testing method has changed, this may include reference ranges. ANION GAP 2025-07-17 15:15 [facility] 9.0 (missing ) (missing) MEAN PLATELET VOLUME 2025-07-17 15:15 [facility] 9.1 fl (missing) SLIDE REVIEW? 2025-07-17 15:15 [facility] Indicated (missing ) (missing) DIFFERENTIAL COMMENT 2025-07-17 15:15 [facility] MANUAL=AUTO DIFF (missing ) MANUAL DIFFERENTIAL AGREES WITH AUTO DIFFERENTIAL PLATELET ESTIMATE, MANUAL 2025-07-17 15:15 [facility] NORMAL (130-450,000) (missing ) (missing) PLATELET MORPHOLOGY 2025-07-17 15:15 [facility] NORMAL APPEARANCE (missing ) (missing) WBC MORPHOLOGY (MULTIPLE) 2025-07-17 15:15 [facility] NORMAL APPEARANCE (missing ) (missing) Result panel 170 SALICYLATE 2025-07-17:20 [facility] < 1.5 mg/dl Salicyalte Theraputic Range <30mg/dL As of April 2023 testing method has changed, this may include reference ranges. ETOH - ETHANOL 2025-07-17:20 [facility] < 10.0 mg /dl Blood Alcohol Levels Level Sporadic Drinkers Chronic drinkers 100 mg/dL Legally intoxicated* Minimal signs 200-250 mg/dL Alertness lost, Effort needed to becoming lethargic maintain emotional and motor control 300-350 mg/dL Stupor to coma Drowsy and slow >500 mg/dL Possible Coma *The legal definition of intoxication varies. This assy is for medical decision making only. As of April 2023 testing method has changed, this may include reference ranges. ACETAMINOPHEN 2025-07-17 15:20 [facility] 0.6 ug/ ml Acetaminophen Therapeutic concentration 10-30 ug/mLHepatotoxicity concentrations - >150 ug/mL at 4hr after ingestion >75 ug/mL at 8hr after ingestion >40 ug/mL at 12hr after ingestion As of April 2023 testing method has changed, this may include reference ranges. Result panel 171 ABG BASE EXCESS 2025-07-17 15:40 [facility] -2.4 mmol/l (missing) ABG ANALYSIS TIME 2025-07-17 15:40 [facility] 1545 (missing) (missing) ABG RESPIRATORY RATE 2025-07-17 15:40 [facility] 16 b/min (missing) ABG HCO3 2025-07-17 15:40 [facility] 26.4 mmol/l (missing) ABG TCO2 2025-07-17 15:40 [facility] 28.6 mmol/l (missing) ABG PEAK END EXPIRATORY PRESSU 2025-07-17 15:40 [facility] 5 cmh2o (missing) ABG TIDAL VOLUME 2025-07-17 15:40 [facility] 550 ml (missing) ABG PH 2025-07-17 15:40 [facility] 7.17 (missing) Called to [facility] by Yancy Sheridan MLT([facility]) at 1600 07/17/25. Read back(Y/N)? yes ABG PCO2 2025-07-17 15:40 [facility] 73 mmhg Called to [facility] ED by Yancy Sheridan MLT(ASCP) at 1600 07/17/25. Read back(Y/N)? yes ABG FRACTION OF INSPIRED O2 2025-07-17 15:40 [facility] 75.00 (missing) (missing) ABG PO2 2025-07-17 15:40 [facility] 89 mmhg (missing) ABG OXYGEN SATURATION 2025-07-17 15:40 [facility] 97 % (missing) LAURA TEST 2025-07-17 15:40 [facility] POSITIVE (missing) Collateral Circulation Present, consistent with a Positive Allens Test. Information or result provided by Respiratory Therapy. ABG SITE OF DRAW 2025-07-17 15:40 [facility] RIGHT RADIAL (missing) (missing) ABG O2 DEVICE 2025-07-17 15:40 [facility] VENTILATOR (missing) (missing) Social History date description facility 2025-05-04 00:00 Current some day smoker [facility] 2025-05-18 00:00 Current some day [facility] 2025-07-03 00:00 Current some day [facility] Vital Signs date measurement value units [...]
[2025-07-17 17:01] LABS: AMPHETAMINE SCREEN,URINE NEGATIVE (NEGATIVE); BARBITURATE SCREEN,UR NEGATIVE (NEGATIVE); BENZODIAZEPINES SCREEN, URINE NEGATIVE (NEGATIVE); BUPRENORPHINE SCREEN, URINE POSITIVE (NEGATIVE); COCAINE SCREEN URINE NEGATIVE (NEGATIVE); METHADONE SCREEN, URINE NEGATIVE (NEGATIVE); METHAMPHETAMINES SCREEN, URINE NEGATIVE (NEGATIVE); OPIATE SCREEN, URINE NEGATIVE (NEGATIVE); THC CANNABINOID SCREEN, URINE POSITIVE (NEGATIVE)
--- OUTSIDE RECORDS SUMMARY | 2025-07-17 17:03 | EXTERNAL MEDICAL SUMMARY RPT | Continuity of Care Document ---
Author Organization [facility] Address [address] [place] [id number] Phone Care Team Providers Care Deputy [employer] Name Role Phone Nayan Morris Unavailable Unavailable Allergies and Intolerances date description facility reaction severity 2025-05-04 10:20:53 [facility] (no reactio n) (no severity) 2025-05-18 15:09:30 [facility] (no reactio n) (no severity) 2025-07-03 14:44:09 [facility] (no reactio n) (no severity) 2025-05-04 10:20:53 [facility] (no reactio n) (no severity) 2025-05-18 15:09:30 [facility] (no reactio n) (no severity) 2025-07-03 14:44:09 [facility] (no reactio n) (no severity) Medications date description facility 2025-05-04 00:00 Triamcinolone Acetonide [facility] 2025-05-04 00:00 Roflumilast [facility] 2025-05-04 00:00 Budesonide-Formoterol [facility] 2025-05-04 00:00 Ipratropium-Albuterol [facility] 2025-05-04 00:00 Levothyroxine [facility] 2025-05-04 00:00 Prednisone [facility] 2025-07-03 00:00 Prednisone [facility] 2025-05-04 00:00 Albuterol Sulfate [facility] 2025-07-03 00:00 Albuterol Sulfate [facility] 2025-05-04 00:00 Furosemide [facility] 2025-05-18 00:00 Tizanidine [facility] 2025-07-03 00:00 Fluoxetine [facility] 2025-05-04 00:00 Tiotropium [facility] 2025-05-04 00:00 Atorvastatin [facility] 2025-05-04 00:00 Albuterol Sulfate [facility] 2025-05-04 00:00 Metformin [facility] 2025-05-04 00:00 Levothyroxine [facility] 2025-05-04 00:00 Losartan [facility] 2025-05-04 00:00 Bupropion Hcl [facility] Problems date description facility 2025-05-04 10:59 Hypothyroidism, [facility] 2025-05-04 10:59 Hyperlipidemia, [facility] 2025-05-04 10:59 Impaired fasting glucose [facility] 2025-05-04 10:59 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, [facility] 2025-05-05 16:39 Hypothyroidism, [facility] 2025-05-05 16:39 Hyperlipidemia, [facility] 2025-05-05 16:39 Impaired fasting glucose [facility] 2025-05-05 16:39 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, [facility] 2025-07-03 00:00 Lung nodule [facility] Results/Labs test date facility value unit notes Result panel 1 Specimen collection (procedure) (no date) [facility] (missing) (missing) (missing) Result panel 2 Specimen collection (procedure) (no date) [facility] (missing) (missing) (missing) Result panel 3 Specimen collection (procedure) (no date) [facility] (missing) (missing) (missing) Result panel 4 Specimen collection (procedure) (no date) [facility] (missing) (missing) (missing) Result panel 5 Specimen collection (procedure) (no date) [facility] (missing) (missing) (missing) Result panel 6 Specimen collection (procedure) (no date) [facility] (missing) (missing) (missing) Result panel 7 Specimen collection (procedure) (no date) [facility] (missing) (missing) (missing) Result panel 8 Specimen collection (procedure) (no date) [facility] (missing) (missing) (missing) Result panel 9 Specimen collection (procedure) (no date) [facility] (missing) (missing) (missing) Result panel 10 Specimen collection (procedure) (no date) [facility] (missing) (missing) (missing) Result panel 11 Specimen collection (procedure) (no date) [facility] (missing) (missing) (missing) Result panel 12 Specimen collection (procedure) (no date) [facility] (missing) (missing) (missing) Result panel 13 Specimen collection (procedure) (no date) [facility] (missing) (missing) (missing) Result panel 14 Specimen collection (procedure) (no date) [facility] (missing) (missing) (missing) Result panel 15 Specimen collection (procedure) (no date) [facility] (missing) (missing) (missing) Result panel 16 Specimen collection (procedure) (no date) [facility] (missing) (missing) (missing) Result panel 17 Specimen collection (procedure) (no date) [facility] (missing) (missing) (missing) Result panel 18 Specimen collection (procedure) (no date) [facility] (missing) (missing) (missing) Result panel 19 Specimen collection (procedure) (no date) [facility] (missing) (missing) (missing) Result panel 20 Specimen collection (procedure) (no date) [facility] (missing) (missing) (missing) Result panel 21 Specimen collection (procedure) (no date) [facility] (missing) (missing) (missing) Result panel 22 Specimen collection (procedure) (no date) [facility] (missing) (missing) (missing) Result panel 23 Specimen collection (procedure) (no date) [facility] (missing) (missing) (missing) Result panel 24 Specimen collection (procedure) (no date) [facility] (missing) (missing) (missing) Result panel 25 Specimen collection (procedure) (no date) [facility] (missing) (missing) (missing) Result panel 26 Specimen collection (procedure) (no date) [facility] (missing) (missing) (missing) Result panel 27 Specimen collection (procedure) (no date) [facility] (missing) (missing) (missing) Result panel 28 Specimen collection (procedure) (no date) [facility] (missing) (missing) (missing) Result panel 29 Specimen collection (procedure) (no date) [facility] (missing) (missing) (missing) Result panel 30 Specimen collection (procedure) (no date) [facility] (missing) (missing) (missing) Result panel 31 Specimen collection (procedure) (no date) [facility] (missing) (missing) (missing) Result panel 32 Specimen collection (procedure) (no date) [facility] (missing) (missing) (missing) Result panel 33 Specimen collection (procedure) (no date) [facility] (missing) (missing) (missing) Result panel 34 Specimen collection (procedure) (no date) [facility] (missing) (missing) (missing) Result panel 35 Specimen collection (procedure) (no date) [facility] (missing) (missing) (missing) Result panel 36 Specimen collection (procedure) (no date) [facility] (missing) (missing) (missing) Result panel 37 Specimen collection (procedure) (no date) [facility] (missing) (missing) (missing) Result panel 38 Specimen collection (procedure) (no date) [facility] (missing) (missing) (missing) Result panel 39 Specimen collection (procedure) (no date) [facility] (missing) (missing) (missing) Result panel 40 Specimen collection (procedure) (no date) [facility] (missing) (missing) (missing) Result panel 41 Specimen collection (procedure) (no date) [facility] (missing) (missing) (missing) Result panel 42 Specimen collection (procedure) (no date) [facility] (missing) (missing) (missing) Result panel 43 Specimen collection (procedure) (no date) [facility] (missing) (missing) (missing) Result panel 44 Specimen collection (procedure) (no date) [facility] (missing) (missing) (missing) Result panel 45 Specimen collection (procedure) (no date) [facility] (missing) (missing) (missing) Result panel 46 Specimen collection (procedure) (no date) [facility] (missing) (missing) (missing) Result panel 47 Specimen collection (procedure) (no date) [facility] (missing) (missing) (missing) Result panel 48 Specimen collection (procedure) (no date) [facility] (missing) (missing) (missing) Result panel 49 Specimen collection (procedure) (no date) [facility] (missing) (missing) (missing) Result panel 50 Specimen collection (procedure) (no date) [facility] (missing) (missing) (missing) Result panel 51 Specimen collection (procedure) (no date) [facility] (missing) (missing) (missing) Result panel 52 Specimen collection (procedure) (no date) [facility] (missing) (missing) (missing) Result panel 53 Specimen collection (procedure) (no date) [facility] (missing) (missing) (missing) Result panel 54 Specimen collection (procedure) (no date) [facility] (missing) (missing) (missing) Result panel 55 Specimen collection (procedure) (no date) [facility] (missing) (missing) (missing) Result panel 56 Specimen collection (procedure) (no date) [facility] (missing) (missing) (missing) Result panel 57 Specimen collection (procedure) (no date) [facility] (missing) (missing) (missing) Result panel 58 Specimen collection (procedure) (no date) [facility] (missing) (missing) (missing) Result panel 59 Specimen collection (procedure) (no date) [facility] (missing) (missing) (missing) Result panel 60 Specimen collection (procedure) (no date) [facility] (missing) (missing) (missing) Result panel 61 Specimen collection (procedure) (no date) [facility] (missing) (missing) (missing) Result panel 62 Specimen collection (procedure) (no date) [facility] (missing) (missing) (missing) Result panel 63 Specimen collection (procedure) (no date) [facility] (missing) (missing) (missing) Result panel 64 Specimen collection (procedure) (no date) [facility] (missing) (missing) (missing) Result panel 65 Specimen collection (procedure) (no date) [facility] (missing) (missing) (missing) Result panel 66 Specimen collection (procedure) (no date) [facility] (missing) (missing) (missing) Result panel 67 Specimen collection (procedure) (no date) [facility] (missing) (missing) (missing) Result panel 68 Specimen collection (procedure) (no date) [facility] (missing) (missing) (missing) Result panel 69 Specimen collection (procedure) (no date) [facility] (missing) (missing) (missing) Result panel 70 Specimen collection (procedure) (no date) [facility] (missing) (missing) (missing) Result panel 71 Specimen collection (procedure) (no date) [facility] (missing) (missing) (missing) Result panel 72 Specimen collection (procedure) (no date) [facility] (missing) (missing) (missing) Result panel 73 Specimen collection (procedure) (no date) [facility] (missing) (missing) (missing) Result panel 74 Specimen collection (procedure) (no date) [facility] (missing) (missing) (missing) Result panel 75 Specimen collection (procedure) (no date) [facility] (missing) (missing) (missing) Result panel 76 Specimen collection (procedure) (no date) [facility] (missing) (missing) (missing) Result panel 77 Specimen collection (procedure) (no date) [facility] (missing) (missing) (missing) Result panel 78 Specimen collection (procedure) (no date) [facility] (missing) (missing) (missing) Result panel 79 Specimen collection (procedure) (no date) [facility] (missing) (missing) (missing) Result panel 80 Specimen collection (procedure) (no date) [facility] (missing) (missing) (missing) Result panel 81 Specimen collection (procedure) (no date) [facility] (missing) (missing) (missing) Result panel 82 Specimen collection (procedure) (no date) [facility] (missing) (missing) (missing) Result panel 83 Specimen collection (procedure) (no date) [facility] (missing) (missing) (missing) Result panel 84 Specimen collection (procedure) (no date) [facility] (missing) (missing) (missing) Result panel 85 Specimen collection (procedure) (no date) [facility] (missing) (missing) (missing) Result panel 86 Specimen collection (procedure) (no date) [facility] (missing) (missing) (missing) Result panel 87 Specimen collection (procedure) (no date) [facility] (missing) (missing) (missing) Result panel 88 Specimen collection (procedure) (no date) [facility] (missing) (missing) (missing) Result panel 89 Specimen collection (procedure) (no date) [facility] (missing) (missing) (missing) Result panel 90 Specimen collection (procedure) (no date) [facility] (missing) (missing) (missing) Result panel 91 Specimen collection (procedure) (no date) [facility] (missing) (missing) (missing) Result panel 92 Specimen collection (procedure) (no date) [facility] (missing) (missing) (missing) Result panel 93 Specimen collection (procedure) (no date) [facility] (missing) (missing) (missing) Result panel 94 Specimen collection (procedure) (no date) [facility] (missing) (missing) (missing) Result panel 95 Specimen collection (procedure) (no date) [facility] (missing) (missing) (missing) Result panel 96 Specimen collection (procedure) (no date) [facility] (missing) (missing) (missing) Result panel 97 Specimen collection (procedure) (no date) [facility] (missing) (missing) (missing) Result panel 98 Specimen collection (procedure) (no date) [facility] (missing) (missing) (missing) Result panel 99 Specimen collection (procedure) (no date) [facility] (missing) (missing) (missing) Result panel 100 Specimen collection (procedure) (no date) [facility] (missing) (missing) (missing) Result panel 101 Specimen collection (procedure) (no date) [facility] (missing) (missing) (missing) Result panel 102 Specimen collection (procedure) (no date) [facility] (missing) (missing) (missing) Result panel 103 Specimen collection (procedure) (no date) [facility] (missing) (missing) (missing) Result panel 104 Specimen collection (procedure) (no date) [facility] (missing) (missing) (missing) Result panel 105 Specimen collection (procedure) (no date) [facility] (missing) (missing) (missing) Result panel 106 Specimen collection (procedure) (no date) [facility] (missing) (missing) (missing) Result panel 107 Specimen collection (procedure) (no date) [facility] (missing) (missing) (missing) Result panel 108 Specimen collection (procedure) (no date) [facility] (missing) (missing) (missing) Result panel 109 Specimen collection (procedure) (no date) [facility] (missing) (missing) (missing) Result panel 110 Specimen collection (procedure) (no date) [facility] (missing) (missing) (missing) Result panel 111 Specimen collection (procedure) (no date) [facility] (missing) (missing) (missing) Result panel 112 Specimen collection (procedure) (no date) [facility] (missing) (missing) (missing) Result panel 113 Specimen collection (procedure) (no date) [facility] (missing) (missing) (missing) Result panel 114 Specimen collection (procedure) (no date) [facility] (missing) (missing) (missing) Result panel 115 Specimen collection (procedure) (no date) [facility] (missing) (missing) (missing) Result panel 116 Specimen collection (procedure) (no date) [facility] (missing) (missing) (missing) Result panel 117 Specimen collection (procedure) (no date) [facility] (missing) (missing) (missing) Result panel 118 Specimen collection (procedure) (no date) [facility] (missing) (missing) (missing) Result panel 119 Specimen collection (procedure) (no date) [facility] (missing) (missing) (missing) Result panel 120 Specimen collection (procedure) (no date) [facility] (missing) (missing) (missing) Result panel 121 Specimen collection (procedure) (no date) [facility] (missing) (missing) (missing) Result panel 122 Specimen collection (procedure) (no date) [facility] (missing) (missing) (missing) Result panel 123 Specimen collection (procedure) (no date) [facility] (missing) (missing) (missing) Result panel 124 Specimen collection (procedure) (no date) [facility] (missing) (missing) (missing) Result panel 125 Specimen collection (procedure) (no date) [facility] (missing) (missing) (missing) Result panel 126 Specimen collection (procedure) (no date) [facility] (missing) (missing) (missing) Result panel 127 Specimen collection (procedure) (no date) [facility] (missing) (missing) (missing) Result panel 128 Specimen collection (procedure) (no date) [facility] (missing) (missing) (missing) Result panel 129 Specimen collection (procedure) (no date) [facility] (missing) (missing) (missing) Result panel 130 Specimen collection (procedure) (no date) [facility] (missing) (missing) (missing) Result panel 131 Specimen collection (procedure) (no date) [facility] (missing) (missing) (missing) Result panel 132 Specimen collection (procedure) (no date) [facility] (missing) (missing) (missing) Result panel 133 Specimen collection (procedure) (no date) [facility] (missing) (missing) (missing) Result panel 134 Specimen collection (procedure) (no date) [facility] (missing) (missing) (missing) Result panel 135 Specimen collection (procedure) (no date) [facility] (missing) (missing) (missing) Result panel 136 Specimen collection (procedure) (no date) [facility] (missing) (missing) (missing) Result panel 137 Specimen collection (procedure) (no date) [facility] (missing) (missing) (missing) Result panel 138 Specimen collection (procedure) (no date) [facility] (missing) (missing) (missing) Result panel 139 Specimen collection (procedure) (no date) [facility] (missing) (missing) (missing) Result panel 140 Specimen collection (procedure) (no date) [facility] (missing) (missing) (missing) Result panel 141 Specimen collection (procedure) (no date) [facility] (missing) (missing) (missing) Result panel 142 Specimen collection (procedure) (no date) [facility] (missing) (missing) (missing) Result panel 143 Specimen collection (procedure) (no date) [facility] (missing) (missing) (missing) Result panel 144 Specimen collection (procedure) (no date) [facility] (missing) (missing) (missing) Result panel 145 Specimen collection (procedure) (no date) [facility] (missing) (missing) (missing) Result panel 146 Specimen collection (procedure) (no date) [facility] (missing) (missing) (missing) Result panel 147 Specimen collection (procedure) (no date) [facility] (missing) (missing) (missing) Result panel 148 Specimen collection (procedure) (no date) [facility] (missing) (missing) (missing) Result panel 149 Specimen collection (procedure) (no date) [facility] (missing) (missing) (missing) Result panel 150 Specimen collection (procedure) (no date) [facility] (missing) (missing) (missing) Result panel 151 Specimen collection (procedure) (no date) [facility] (missing) (missing) (missing) Result panel 152 Specimen collection (procedure) (no date) [facility] (missing) (missing) (missing) Result panel 153 Specimen collection (procedure) (no date) [facility] (missing) (missing) (missing) Result panel 154 Hemoglobin A1c percentage 2025-05-04 10:56:07 [facility] 6.7 % (missing) Result panel 155 Triglyceride [Mass/volume] i n Serum or Plasma 2025-05-04 10:56:07 [facility] 169 mg/dL (m issing) Result panel 156 Cholesterol [Mass/volume] in Serum or Plasma 2025-05-04 10:56:07 [facility] 245 mg/dL (m issing) Result panel 157 Cholesterol in HDL [Mass/volume] in Serum or Plasma 2025-05-04 10:56:07 [facility] 42 mg/dL (miss ing) Result panel 158 Serum or plasma cholesterol in LDL measurement by calculation (mass/volume) 2025-05-04 10:56:07 [facility] 169 mg/dL (missing) Result panel 159 Thyroxine (T4) free [Mass/volume] in Serum or Plasma 2025-05-04 10:56:07 [facility] 0.25 ng/dL (miss ing) Result panel 160 Hemoglobin A1c percentage 2025-05-04 10:56:07 [facility] 6.7 % (missing) Result panel 161 Triglyceride [Mass/volume] i n Serum or Plasma 2025-05-04 10:56:07 [facility] 169 mg/dL ( issing) Result panel 162 Cholesterol [Mass/volume] in Serum or Plasma 2025-05-04 10:56:07 [facility] 245 mg/dL ( issing) Result panel 163 Cholesterol in HDL [Mass/volume] in Serum or Plasma 2025-05-04 10:56:07 [facility] 42 mg/dL ([facility]) Result panel 164 Serum or plasma cholesterol in LDL measurement by calculation (mass/volume) 2025-05-04 10:56:07 [facility] 169 mg/dL (missing) Result panel 165 Thyroxine (T4) free [Mass/volume] in Serum or Plasma 2025-05-04 10:56:07 [facility] 0.25 ng/dL ([facility]) Result panel 166 Triglycerides 2025-05-04 12:13 [facility] 169 mg/ dl NORMAL: <150 MG/DL BORDERLINE HIGH: 150-199 MG/DL HIGH: 200-499 MG/DL VERY HIGH: >500 MG/DL LDL Cholesterol Calculated 2025-05-04 12:13 [facility] 169 mg/dl OPTIMAL LESS THAN 100 MG/DL NEAR OR ABOVE OPTIMAL 100 - 129 MG/DL BORDERLINE HIGH 130 - 159 MG/DL HIGH 160 - 189 MG/DL VERY HIGH >= 190 MG/DL Cholesterol 2025-05-04 12:13 [facility] 245 mg/dl Desirable: <200 mg/dL Borderline High: 200-239 mg/dL High: >239 mg/dL HDL Cholesterol 2025-05-04 12:13 [facility] 42 m g/dl ATP-III [place] HDL >60 mg/dL COUNT A 'NEGATIVE' RISK FACTOR. Result panel 167 TSH w/ Reflex to FT4 2025-05-04 12:42 [facility] 91.20 uiu/ml (missing) Result panel 168 Free T4, Direct Thyroxine 2025-05-04 13:22 [facility] 0.25 ng/dl (missing ) Hemoglobin A1C% w Est Avg Glu 2025-05-04 13:22 [facility] 6.7 % Hemoglob in A1c Estimated Average Glucose (mg/dl) 5% 97 6% 126 7% 154 8% 183 9% 212 10% 240 11% 269 12% 298 Individuals with Hemoglobin (Hb)A1c between 5.7-6.4% are at increased risk for diabetes. TSH w/ Reflex to FT4 2025-05-04 13:22 [facility] 91.20 uiu/ml (missing ) Result panel 169 BASOPHILS # (AUTO) 2025-07-17 15:15 [facility] 0.0 10 3/ul (missing) EOSINOPHILS # (AUTO) 2025-07-17 15:15 [facility] 0.0 10 3/ul (missing) MONOCYTES # (AUTO) 2025-07-17 15:15 [facility] 0.3 10 3/ul (missing) BILIRUBIN,TOTAL 2025-07-17 15:15 [facility] 0.3 mg/dl As of April 2023 testing method has changed, this may include reference ranges. NRBC ABSOLUTE COUNT (AUTO) 2025-07-17 15:15 [facility] 0.30 x10 3/ul (missing) RBC MORPHOLOGY (MULTIPLE) 2025-07-17 15:15 [facility] 1+ MACROCYTOSIS (missing ) (missing) ALBUMIN/GLOBULIN RATIO 2025-07-17 15:15 [facility] 1.5 (missing ) (missing) NEUTROPHILS # (AUTO) 2025-07-17 15:15 [facility] 1.8 10 3/ul (missing) CHLORIDE 2025-07-17 15:15 [facility] 101 mmol/l As of April 2023 testing method has changed, this may include reference ranges. MEAN CORPUSCULAR VOLUME 2025-07-17 15:15 [facility] 102.7 fl (missing) ALKALINE PHOSPHATASE 2025-07-17 15:15 [facility] 117 iu/l As of April 2023 testing method has changed, this may include reference ranges. HGB - HEMOGLOBIN 2025-07-17 15:15 [facility] 12.4 g/dl (missing) ALT ALANINE AMINOTRANSFERASE 2025-07-17 15:15 [facility] 127 iu/l As of April 2023 testing method has changed, this may include reference ranges. PLT - PLATELET COUNT 2025-07-17 15:15 [facility] [facility] 142 10 3/ul (missing) SODIUM 2025-07-17 15:15 [facility] 144 mmol/l (missing) RED CELL DISTRIBUTION WIDTH 2025-07-17 15:15 [facility] 16.1 % (missing) AST ASPARTATE AMINOTRANSFERASE 2025-07-17 15:15 [facility] 191 iu/l As of April 2023 testing method has changed, this may include reference ranges. LYMPHOCYTES # (AUTO) 2025-07-17 15:15 [facility] 2.5 10 3/ul (missing) GLOBULIN 2025-07-17 15:15 [facility] 2.8 g/dl (missing) GFR - MDRD 2025-07-17 15:15 [facility] 22 (missing ) The IDMS-traceable MDRD Study [...] 2011. MEAN CORPUSCULAR HGB CONC 2025-07-17 15:15 [facility] 29.1 g/dl (missing) MEAN CORPUSCULAR HEMOGLOBIN 2025-07-17 15:15 [facility] 29.9 pg (missing) CREATININE 2025-07-17 15:15 [facility] 3.0 mg/dl As of April 2023 testing method has changed, this may include reference ranges. BUN - BLOOD UREA NITROGEN 2025-07-17 15:15 [facility] 33 mg/dl As of April 2023 testing method has changed, this may include reference ranges. CARBON DIOXIDE - CO2 2025-07-17 15:15 [facility] 34 mmol/l As of April 2023 testing method has changed, this may include reference ranges. RED BLOOD COUNT 2025-07-17 15:15 [facility] 4.15 10 6/ul (missing) ALBUMIN 2025-07-17 15:15 [facility] 4.2 g/dl As of April 2023 testing method has changed, this may include reference ranges. POTASSIUM 2025-07-17 15:15 [facility] 4.9 mmol/l As of April 2023 testing method has changed, this may include reference ranges. HCT - HEMATOCRIT 2025-07-17 15:15 [facility] 42.6 % (missing) WHITE BLOOD COUNT 2025-07-17 15:15 [facility] 5.3 x10 3/ul (missing) NUCLEATED RED BLOOD CELLS AUTO 2025-07-17 15:15 [facility] 5.6 /100wbc (missing) TOTAL PROTEIN 2025-07-17 15:15 [facility] 7.0 g/dl As of April 2023 testing method has changed, this may include reference ranges. GLUCOSE 2025-07-17 15:15 [facility] 77 mg/dl As of April 2023 testing method has changed, this may include reference ranges. CALCIUM 2025-07-17 15:15 [facility] 8.8 mg/dl As of April 2023 testing method has changed, this may include reference ranges. ANION GAP 2025-07-17 15:15 [facility] 9.0 (missing ) (missing) MEAN PLATELET VOLUME 2025-07-17 15:15 [facility] 9.1 fl (missing) SLIDE REVIEW? 2025-07-17 15:15 [facility] Indicated (missing ) (missing) DIFFERENTIAL COMMENT 2025-07-17 15:15 [facility] MANUAL=AUTO DIFF (missing ) MANUAL DIFFERENTIAL AGREES WITH AUTO DIFFERENTIAL PLATELET ESTIMATE, MANUAL 2025-07-17 15:15 [facility] NORMAL (130-450,000) (missing ) (missing) PLATELET MORPHOLOGY 2025-07-17 15:15 [facility] NORMAL APPEARANCE (missing ) (missing) WBC MORPHOLOGY (MULTIPLE) 2025-07-17 15:15 [facility] NORMAL APPEARANCE (missing ) (missing) Result panel 170 SALICYLATE 2025-07-17:20 [facility] < 1.5 mg/dl Salicyalte Theraputic Range <30mg/dL As of April 2023 testing method has changed, this may include reference ranges. ETOH - ETHANOL 2025-07-17:20 [facility] < 10.0 mg /dl Blood Alcohol Levels [...] may include reference ranges. ACETAMINOPHEN 2025-07-17 15:20 [facility] 0.6 ug/ ml Acetaminophen Therapeutic concentration 10-30 ug/mLHepatotoxicity concentrations - >150 ug/mL at 4hr after ingestion >75 ug/mL at 8hr after ingestion >40 ug/mL at 12hr after ingestion As of April 2023 testing method has changed, this may include reference ranges. Result panel 171 ABG BASE EXCESS 2025-07-17 15:40 [facility] -2.4 mmol/l (missing) ABG ANALYSIS TIME 2025-07-17 15:40 [facility] 1545 (missing) (missing) ABG RESPIRATORY RATE 2025-07-17 15:40 [facility] 16 b/min (missing) ABG HCO3 2025-07-17 15:40 [facility] 26.4 mmol/l (missing) ABG TCO2 2025-07-17 15:40 [facility] 28.6 mmol/l (missing) ABG PEAK END EXPIRATORY PRESSU 2025-07-17 15:40 [facility] 5 cmh2o (missing) ABG TIDAL VOLUME 2025-07-17 15:40 [facility] 550 ml (missing) ABG PH 2025-07-17 15:40 [facility] 7.17 (missing) Called to [facility] ED by Yancy Sheridan MLT([facility]) at 1600 07/17/25. Read back(Y/N)? yes ABG PCO2 2025-07-17 15:40 [facility] 73 mmhg Called to [facility] RN ED by Yancy Sheridan MLT(ASCP) at 1600 07/17/25. Read back(Y/N)? yes ABG FRACTION OF INSPIRED O2 2025-07-17 15:40 [facility] 75.00 (missing) (missing) ABG PO2 2025-07-17 15:40 [facility] 89 mmhg (missing) ABG OXYGEN SATURATION 2025-07-17 15:40 [facility] 97 % (missing) LAURA TEST 2025-07-17 15:40 [facility] POSITIVE (missing) Collateral Circulation Present, consistent with a Positive Allens Test. Information or result provided by Respiratory Therapy. ABG SITE OF DRAW 2025-07-17 15:40 [facility] RIGHT RADIAL (missing) (missing) ABG O2 DEVICE 2025-07-17 15:40 [facility] VENTILATOR (missing) (missing) Social History date description facility 2025-05-04 00:00 Current some day smoker [facility] 2025-05-18 00:00 Current some day [facility] 2025-07-03 00:00 Current some day [facility] Vital Signs date measurement value units 2025-05-04 [...]
[2025-07-17 17:07] LABS: GLUCOSE, URINE (UA) NEGATIVE (NEGATIVE); KETONES,URINE (UA) NEGATIVE (NEGATIVE); OCCULT BLOOD,URINE MODERATE (NEGATIVE)
[2025-07-17 17:13] LABS: SQUAMOUS EPITHELIAL CELL,UR NONE SEEN (<= Few)
[2025-07-17 17:14] LABS: CASTS, URINE 3-5 Hyaline Casts /LPF
[2025-07-17] MEDS ORDERED: ACETAMINOPHEN 325 MG TABLET PO PRN (17:40)
[2025-07-17] MEDS ORDERED: ONDANSETRON ODT 4 MG TABLET TL PRN (17:40)
[2025-07-17] MEDS ORDERED: ONDANSETRON 4 MG/2 ML VIAL IVP PRN (17:40)
[2025-07-17 18:16] LABS: ABG BASE EXCESS -2.8 mmol/L (-2.0-3.0); ABG HCO3 24.8 mmol/L (22.0-26.0); ABG OXYGEN SATURATION 91 % (95-98); ABG PCO2 57 mmHg (34-45); ABG PH 7.24 (7.35-7.45); ABG PO2 68 mmHg (83-108); ABG TCO2 26.6 mmol/L (21.0-29.0)
[2025-07-17 18:17] LABS: ABG FRACTION OF INSPIRED O2 75.00; ABG MODE OF VENTILATION ASSIST/CONTROL; ABG RESPIRATORY RATE 18 b/min
[2025-07-17] MEDS: methylPREDNISolone SUCCINATE 125 MG/2 ML VIAL IVP SCH (18:48)
[2025-07-17] MEDS: SODIUM CHLORIDE FLUSH 0.9% 10 ML SYRINGE IVP SCH (18:49)
[2025-07-17] MEDS: LACTATED RINGERS 1,000 ML IV ONE (18:55)
[2025-07-17] MEDS: DEXTROSE 5%-0.45% NACL 1,000 ML IV STA (18:56)
[2025-07-17] MEDS: ACETAMINOPHEN 1,000 MG/100 ML 1,000 MG/100 ML BAG IV PRN (20:26)
--- NOTE | 2025-07-17 20:26 | ANESTHESIA PROCEDURE NOTE ---
Anesth Central Line Template Central Line Procedure Date: 07/17/25 Central Line Preparation: Unable to obtain consent, Time out completed, Ultrasound used and Sterile prep and drape Central line location: Right IJ Central line type: Triple lumen Central line catheter tip site resides: [facility], right Central line aftercare: Chlorhexidine disc placed, Secured, Placement confirmed, No pneumothorax, No complications, Bundle checklist complete and Pt tolerated well
[2025-07-17] MEDS: VASOPRESSIN 20 UNIT in DEXTROSE 5% 99 ML IV SCH (20:48)
[2025-07-17] MEDS: cefTRIAXone 2 GM in SODIUM CHLORIDE 0.9% MINIBAG 100 ML IV SCH (20:50)
[2025-07-17] MEDS: PROPOFOL 1000 MG/100 ML 1,000 MG/100 ML BOTTLE IV SCH (20:52)
[2025-07-17] MEDS: FAMOTIDINE 20 MG/2 ML VIAL IVP SCH (21:13)
[2025-07-17] MEDS: HEPARIN 5,000 UNIT/ML VIAL SUBQ SCH (21:13)
[2025-07-18] MEDS: SODIUM CHLORIDE FLUSH 0.9% 10 ML SYRINGE IVP PRN (01:44)
[2025-07-18 04:28] LABS: PLT - PLATELET COUNT 51 10^3/uL (130-450); RED CELL DISTRIBUTION WIDTH 16.4 % (12.0-15.0)
[2025-07-18 04:33] LABS: MEAN PLATELET VOLUME 10.4 fL (7.4-11.4)
[2025-07-18 04:36] LABS: HGB - HEMOGLOBIN 11.1 g/dL (14.0-18.0)
[2025-07-18 04:37] LABS: HCT - HEMATOCRIT 35.8 % (42.0-52.0)
[2025-07-18 04:38] LABS: ABNORMAL LYMPHS % (MANUAL) 0 %; BASOPHILS # (MANUAL) 0.0 10^3/uL (0-0.1); EOSINOPHILS # (MANUAL) 0.0 10^3/uL (0-0.7)
[2025-07-18 04:46] LABS: PHOSPHORUS 5.6 mg/dL (2.5-5.0)
[2025-07-18 04:51] LABS: VBG PH 7.278 (7.31-7.41)
[2025-07-18 05:00] LABS: ALT ALANINE AMINOTRANSFERASE 916.0 IU/L (10-60); AST ASPARTATE AMINOTRANSFERASE 1705.0 IU/L (10-42); BUN - BLOOD UREA NITROGEN 49.0 mg/dL (6-20); CARBON DIOXIDE - CO2 28.0 mmol/L (21-32); CREATININE 3.5 mg/dL (0.6-1.3); GFR - MDRD 19.0 (>89)
[2025-07-18 05:25] LABS: ABG BASE EXCESS -7.7 mmol/L (-2.0-3.0); ABG HCO3 18.0 mmol/L (22.0-26.0); ABG OXYGEN SATURATION 94 % (95-98); ABG PCO2 32 mmHg (34-45); ABG PH 7.36 (7.35-7.45); ABG PO2 76 mmHg (83-108); ABG TCO2 19.0 mmol/L (21.0-29.0)
[2025-07-18 05:26] LABS: ABG FRACTION OF INSPIRED O2 40.00; ABG MODE OF VENTILATION ASSIST/CONTROL; ABG RESPIRATORY RATE 18 b/min
[2025-07-18 06:05] LABS: BAND NEUTROPHILS % (MANUAL) 12 %; LYMPHOCYTES # (MANUAL) 1.1 10^3/uL (1.5-3.5); LYMPHOCYTES % (MANUAL) 29 %; METAMYELOCYTES % (MANUAL) 2 %; MONOCYTES # (MANUAL) 0.1 10^3/uL (0.0-1.0); NEUTROPHILS # (MANUAL) 2.5 10^3/uL (1.5-6.6)
[2025-07-18 06:06] LABS: PLATELET ESTIMATE, MANUAL DECREASED (<130,000) (NORMAL); PLATELET MORPHOLOGY NORMAL APPEARANCE (NORMAL); RBC MORPHOLOGY (MULTIPLE) NORMAL APPEARANCE (NORMAL); WBC MORPHOLOGY (MULTIPLE) 1+ TOXIC GRANULATION (NORMAL)
--- NOTE | 2025-07-18 07:22 | PROVIDER PROGRESS NOTE ---
Subjective Prog Note Date Prog Note Date: 07/18/25 Prog Note Time: 07:17 Subjective Subjective: Patient is generally improved this morning. His pressors have been weaned off by 4 AM this morning. Unfortunately has had no urine output since late last night. He maintains on the vent. I am trying an albumin and Lasix challenge this morning otherwise he may need transfer for consideration of dialysis. Remainder of his labs significant for AST 1705, ALT 916, creatinine 3.5, BUN 49, K4.9. His creatinine and BUN are both increased from yesterday. His transaminases are elevated from yesterday. Platelets 142 down to 51. Regarding diagnostic workup, he has maame hypothyroidism with a TSH of 53, WBC is low this morning at 3.7, though he has a bandemia (steroids were started yesterday). Acid-base balance is normalized. pCO2 32, may be overcorrected given his presumed chronic hypercapnia. Current Medications Current Medications Current Medications: Current Medications Generic Name Dose Route Start Last Admin Trade Name Freq PRN Reason Stop Dose Admin Acetaminophen 650 mg 07/17/25 17:40 Acetaminophen 325 Mg Tablet PO Q4HR PRN Pain 1 to 4, or Fever Famotidine 20 mg 07/17/25 21:00 07/17/25 21:13 Famotidine 20 Mg/2 Ml Vial IVP 20 mg BID JOSE Administration Heparin Sodium (Porcine) 5,000 unit 07/17/25 21:00 07/17/25 21:13 Heparin 5,000 Unit/Ml Vial SUBQ 5,000 unit BID JOSE Administration Norepinephrine/Sodium Chloride 8 mg in 250 mls @ 15 mls/hr 07/17/25 16:00 07/18/25 04:05 Levophed 8 Mg/250-0.9% Nacl IV 0 mcg/min .[id number] JOSE 0 mls/hr Protocol Titration 8 MCG/MIN Dexmedetomidine/Sodium Chloride 100 mls @ 5.31 mls/hr 07/17/25 15:28 07/18/25 06:04 Precedex Premix IV 0.6 mcg/kg/hr .[id number] PRN 15.93 mls/hr Agitation Titration Protocol 0.2 MCG/KG/HR Ceftriaxone Sodium 2 gm/ 100 mls @ 200 mls/hr 07/17/25 19:00 07/17/25 22:46 Sodium Chloride IV Infused Q24H JOSE Infusion Vasopressin 20 unit/ Dextrose 100 mls @ 9 mls/hr 07/17/25 19:00 07/18/25 06:06 IV Not Given .[id number] JOSE 0.03 UNIT/MIN Acetaminophen 1,000 mg in 100 mls @ 400 mls/hr 07/17/25 19:36 07/18/25 03:43 Acetaminophen IV Infused Q6HR PRN Infusion Moderate Pain (Level 4-6) Propofol 1,000 mg in 100 mls @ 6.372 mls/hr 07/17/25 20:00 07/17/25 20:52 Diprivan IV Not Given .[id number] [facility] Protocol 10 MCG/KG/MIN Insulin Human Regular 1 - 5 unit 07/18/25 12:00 Insulin Regular, Human 300 Unit/3 Ml Pen SUBQ Q6HR [facility] Protocol Levothyroxine Sodium 100 mcg 07/18/25 09:00 Levothyroxine 100 Mcg Tablet FT DAILY JOSE Levothyroxine Sodium 75 mcg 07/18/25 09:00 Levothyroxine 75 Mcg Tablet FT DAILY JOSE Methylprednisolone Sodium Succinate 125 mg 07/17/25 18:20 07/18/25 05:06 Methylprednisolone Succinate 125 Mg/2 Ml Vial IVP 125 mg TID JOSE Administration Ondansetron HCl 4 mg 07/17/25 17:40 Ondansetron Odt 4 Mg Tablet TL Q6HR PRN Nausea / Vomiting Ondansetron HCl 4 mg 07/17/25 17:40 Ondansetron 4 Mg/2 Ml Vial IVP Q6HR PRN Nausea / Vomiting Sodium Chloride 10 ml 07/17/25 17:40 07/18/25 00:32 Sodium Chloride Flush 0.9% 10 Ml Syringe IVP 10 ml 0100,0900,1700 JOSE Administration Sodium Chloride 10 ml 07/17/25 17:40 07/18/25 01:44 Sodium Chloride Flush 0.9% 10 Ml Syringe IVP 10 ml PRN PRN Administration NEEDED PER PROVIDER ORDERS Objective Vital Signs/Intake & Output Vital Signs: Vital Signs x48h Temp Pulse Pulse Resp BP Pulse Ox 07/18/25 07:00 36.9 C 70 18 129/96 H 95 07/18/25 06:00 36.9 C 69 18 121/96 H 95 07/18/25 05:30 37.0 C 69 19 120/96 H 94 07/18/25 05:28 37.0 C 07/18/25 05:18 75 07/18/25 05:00 37.2 C 68 20 119/85 95 07/18/25 04:40 113/83 07/18/25 04:35 107/74 07/18/25 04:30 105/74 07/18/25 04:30 111/80 07/18/25 04:25 105/73 07/18/25 04:12 37.4 C 07/18/25 04:00 37.5 C 72 22 107/79 92 07/18/25 03:49 37.6 C 07/18/25 03:46 37.7 C 73 24 104/81 94 07/18/25 03:30 37.8 C 77 24 102/78 91 L 07/18/25 03:15 37.9 C 79 126/97 H 07/18/25 03:00 38 C H 80 23 122/97 H 92 07/18/25 02:55 82 07/18/25 02:22 38.5 C H 07/18/25 02:16 95/78 07/18/25 02:10 38.6 C H 101/77 07/18/25 02:09 38.6 C H 07/18/25 02:05 91/65 07/18/25 02:00 38.7 C H 92 22 114/87 94 07/18/25 01:56 38.7 C H 82 82 H 100/80 94 07/18/25 01:52 105/81 07/18/25 01:46 125/94 H 07/18/25 01:41 38.8 C H 07/18/25 01:18 38.9 C H 07/18/25 01:00 39.0 C H 87 26 H 98/73 95 07/18/25 00:52 39.0 C H 07/18/25 00:49 87 07/18/25 00:33 122/102 H 07/18/25 00:00 39.2 C H 89 24 129/99 H 97 07/17/25 23:42 39.2 C H Intake & Output: Intake & Output 07/15/25 07/16/25 07/17/25 07/18/25 23:59 23:59 23:59 23:59 Intake Total 5369 / 5363 345 / 345 Output Total 205 / 205 235 / 235 Balance 5164 / 5164 110 / 110 Weight (kg) 103.5 kg 105 kg Lab Results 07/18/25 04:20 07/18/25 04:20 Other Labs: Lab Results x24hrs 07/18/25 07/18/25 07/17/25 Range/Units 05:05 04:20 18:00 WBC 3.7 L (4.8-10.8) x10^3/uL RBC 3.68 L (4.70-6.10) 10^6/uL Hgb 11.1 L (14.0-18.0) g/dL Hct 35.8 L (42.0-52.0) % MCV 97.3 H (80.0-94.0) fL MCH 30.2 (27.0-31.0) pg MCHC 31.0 L (32.0-36.0) g/dL RDW 16.4 H (12.0-15.0) % Plt Count 51 L (130-450) 10^3/uL MPV 10.4 (7.4-11.4) fL Neut # (Auto) Not Reportable (1.5-6.6) 10^3/uL Lymph # (Auto) Not Reportable (1.5-3.5) 10^3/uL Winn # (Auto) Not Reportable (0.0-1.0) 10^3/uL Eos # (Auto) Not Reportable (0.0-0.7) 10^3/uL Baso # (Auto) Not Reportable (0.0-0.1) 10^3/uL Absolute Nucleated RBC Not Reportable x10^3/uL Total Counted 100 Band Neuts % (Manual) 12 H Abnorm Lymph % (Manual) 0 Metamyelocytes % 2 H ( - 0) % Nucleated RBC % Not Reportable /100WBC Neutrophils # (Manual) 2.5 Lymphocytes # (Manual) 1.1 L Monocytes # (Manual) 0.1 Eosinophils # (Manual) 0.0 Basophils # (Manual) 0.0 Differential Comment MANUAL DIFFERENTIAL Manual Slide Review WBC Morphology 1+ TOXIC GRANULATION (NORMAL) Platelet Estimate DECREASED (<130,000) (NORMAL) Platelet Morphology NORMAL APPEARANCE (NORMAL) RBC Morph Micro Appear NORMAL APPEARANCE (NORMAL) Bld Gas Analysis Time 05 1808 Sample Site RIGHT RADIAL RIGHT RADIAL ABG pH 7.36 7.24 L (7.35-7.45) ABG pCO2 32 L 57 H (34-45) mmHg ABG pO2 76 L 68 L (83-108) mmHg ABG HCO3 18.0 L 24.8 (22.0-26.0) mmol/L ABG Total CO2 19.0 L 26.6 (21.0-29.0) mmol/L ABG O2 Saturation 94 L 91 L (95-98) % ABG Base Excess -7.7 L -2.8 L (-2.0-3.0) mmol/L Jimmy Test POSITIVE POSITIVE VBG pH 7.278 L (7.31-7.41) Ionized Calcium 0.99 L (1.09-1.30) mmol/L Respiration Rate 18 18 b/min O2 Delivery Device VENTILATOR VENTILATOR Vent Mode ASSIST/CONTROL ASSIST/CONTROL FiO2 40.00 75.00 Tidal Volume 550 550 mL PEEP 5 5 cmH2O Sodium 140 (135-145) mmol/L Potassium 4.9 H (3.5-4.5) mmol/L Chloride 105 (101-111) mmol/L Carbon Dioxide 28 (21-32) mmol/L Anion Gap 7.0 (6-13) BUN 49 H (6-20) mg/dL Creatinine 3.5 H (0.6-1.3) mg/dL Estimated GFR (MDRD) 19 L (>89) Glucose 200 H (74-104) mg/dL Calcium 6.7 L (8.5-10.3) mg/dL Phosphorus 5.6 H (2.5-5.0) mg/dL Magnesium 2.0 (1.7-2.3) mg/dL Total Bilirubin 0.4 (0.2-1.0) mg/dL AST 1705 H (10-42) IU/L ALT 916 H (10-60) IU/L Alkaline Phosphatase 98 (42-121) IU/L Total Protein 5.2 L (6.4-8.9) g/dL Albumin 3.1 L (3.2-5.5) g/dL Globulin 2.1 (2.1-4.2) g/dL Albumin/Globulin Ratio 1.5 (1.0-2.2) TSH (0.34-5.60) uIU/mL Free T4 Direct (0.58-1.64) ng/dL Urine Color Urine Clarity (CLEAR) Urine pH (5.0-7.5) PH Ur Specific [place] (1.002-1.030) Urine Protein (NEGATIVE) mg/dL Urine Glucose (UA) (NEGATIVE) mg/dL Urine Ketones (NEGATIVE) mg/dL Urine Occult Blood (NEGATIVE) Urine Nitrite (NEGATIVE) Urine Bilirubin (NEGATIVE) Urine Urobilinogen (NORMAL) E.U./dL Ur Leukocyte Esterase (NEGATIVE) Urine RBC (0-5) /HPF Urine WBC (0-3) /HPF Ur Squamous Epith Cells (<= Few) Urine Bacteria (None Seen) /HPF Urine Casts /LPF Ur Microscopic Review Urine Culture Comments Urine Creatinine mg/dL Urine Sodium mmol/L Nasal Screen MRSA (PCR) (NEGATIVE) Salicylates mg/dL Urine Opiates Screen (NEGATIVE) Ur Buprenorphine Scrn (NEGATIVE) Ur Oxycodone Screen (NEGATIVE) Urine Methadone Screen (NEGATIVE) Urine Fentanyl Screen (NEGATIVE) Acetaminophen ug/mL Ur Barbiturates Screen (NEGATIVE) Ur Tricyclics Screen (NEGATIVE) Ur Phencyclidine Scrn (NEGATIVE) Ur Amphetamine Screen (NEGATIVE) U Methamphetamines Scrn (NEGATIVE) U Benzodiazepines Scrn (NEGATIVE) Urine Cocaine Screen (NEGATIVE) U Cannabinoids Screen (NEGATIVE) Ur Drug Screen Comment Ethyl Alcohol mg/dL 07/17/25 07/17/25 07/17/25 Range/Units 17:50 17:30 15:40 WBC (4.8-10.8) x10^3/uL RBC (4.70-6.10) 10^6/uL Hgb (14.0-18.0) g/dL Hct (42.0-52.0) % MCV (80.0-94.0) fL MCH (27.0-31.0) pg MCHC (32.0-36.0) g/dL RDW (12.0-15.0) % Plt Count (130-450) 10^3/uL MPV (7.4-11.4) fL Neut # (Auto) (1.5-6.6) 10^3/uL Lymph # (Auto) (1.5-3.5) 10^3/uL Winn # (Auto) (0.0-1.0) 10^3/uL Eos # (Auto) (0.0-0.7) 10^3/uL Baso # (Auto) (0.0-0.1) 10^3/uL Absolute Nucleated RBC x10^3/uL Total Counted Band Neuts % (Manual) Abnorm Lymph % (Manual) Metamyelocytes % ( - 0) % Nucleated RBC % /100WBC Neutrophils # (Manual) Lymphocytes # (Manual) Monocytes # (Manual) Eosinophils # (Manual) Basophils # (Manual) Differential Comment Manual Slide Review WBC Morphology (NORMAL) Platelet Estimate (NORMAL) Platelet Morphology (NORMAL) RBC Morph Micro Appear (NORMAL) Bld Gas Analysis Time 1545 Sample Site RIGHT RADIAL ABG pH 7.17 L* (7.35-7.45) ABG pCO2 73 H* (34-45) mmHg ABG pO2 89 (83-108) mmHg ABG HCO3 26.4 H (22.0-26.0) mmol/L ABG Total CO2 28.6 (21.0-29.0) mmol/L ABG O2 Saturation 97 (95-98) % ABG Base Excess -2.4 L (-2.0-3.0) mmol/L Jimmy Test POSITIVE VBG pH (7.31-7.41) Ionized Calcium (1.09-1.30) mmol/L Respiration Rate 16 b/min O2 Delivery Device VENTILATOR Vent Mode Not Reportable FiO2 75.00 Tidal Volume 550 mL PEEP 5 cmH2O Sodium (135-145) mmol/L Potassium (3.5-4.5) mmol/L Chloride (101-111) mmol/L Carbon Dioxide (21-32) mmol/L Anion Gap (6-13) BUN (6-20) mg/dL Creatinine (0.6-1.3) mg/dL Estimated GFR (MDRD) (>89) Glucose (74-104) mg/dL Calcium (8.5-10.3) mg/dL Phosphorus (2.5-5.0) mg/dL Magnesium (1.7-2.3) mg/dL Total Bilirubin (0.2-1.0) mg/dL AST (10-42) IU/L ALT (10-60) IU/L Alkaline Phosphatase (42-121) IU/L Total Protein (6.4-8.9) g/dL Albumin (3.2-5.5) g/dL Globulin (2.1-4.2) g/dL Albumin/Globulin Ratio (1.0-2.2) TSH 53.87 H (0.34-5.60) uIU/mL Free T4 Direct 0.47 L (0.58-1.64) ng/dL Urine Color Urine Clarity (CLEAR) Urine pH (5.0-7.5) PH Ur Specific [place] (1.002-1.030) Urine Protein (NEGATIVE) mg/dL Urine Glucose (UA) (NEGATIVE) mg/dL Urine Ketones (NEGATIVE) mg/dL Urine Occult Blood (NEGATIVE) Urine Nitrite (NEGATIVE) Urine Bilirubin (NEGATIVE) Urine Urobilinogen (NORMAL) E.U./dL Ur Leukocyte Esterase (NEGATIVE) Urine RBC (0-5) /HPF Urine WBC (0-3) /HPF Ur Squamous Epith Cells (<= Few) Urine Bacteria (None Seen) /HPF Urine Casts /LPF Ur Microscopic Review Urine Culture Comments Urine Creatinine mg/dL Urine Sodium mmol/L Nasal Screen MRSA (PCR) NEGATIVE (NEGATIVE) Salicylates < 1.5 mg/dL Urine Opiates Screen (NEGATIVE) Ur Buprenorphine Scrn (NEGATIVE) Ur Oxycodone Screen (NEGATIVE) Urine Methadone Screen (NEGATIVE) Urine Fentanyl Screen (NEGATIVE) Acetaminophen 0.2 ug/mL Ur Barbiturates Screen (NEGATIVE) Ur Tricyclics Screen (NEGATIVE) Ur Phencyclidine Scrn (NEGATIVE) Ur Amphetamine Screen (NEGATIVE) U Methamphetamines Scrn (NEGATIVE) U Benzodiazepines Scrn (NEGATIVE) Urine Cocaine Screen (NEGATIVE) U Cannabinoids Screen (NEGATIVE) Ur Drug Screen Comment Ethyl Alcohol mg/dL 07/17/25 07/17/25 07/17/25 Range/Units 15:36 15:20 15:15 WBC 5.3 (4.8-10.8) x10^3/uL RBC 4.15 L (4.70-6.10) 10^6/uL Hgb 12.4 L (14.0-18.0) g/dL Hct 42.6 (42.0-52.0) % MCV 102.7 H (80.0-94.0) fL MCH 29.9 (27.0-31.0) pg MCHC 29.1 L (32.0-36.0) g/dL RDW 16.1 H (12.0-15.0) % Plt Count 142 (130-450) 10^3/uL MPV 9.1 (7.4-11.4) fL Neut # (Auto) 1.8 (1.5-6.6) 10^3/uL Lymph # (Auto) 2.5 (1.5-3.5) 10^3/uL Winn # (Auto) 0.3 (0.0-1.0) 10^3/uL Eos # (Auto) 0.0 (0.0-0.7) 10^3/uL Baso # (Auto) 0.0 (0.0-0.1) 10^3/uL Absolute Nucleated RBC 0.30 x10^3/uL Total Counted Band Neuts % (Manual) Not Reportable Abnorm Lymph % (Manual) Not Reportable Metamyelocytes % ( - 0) % Nucleated RBC % 5.6 /100WBC Neutrophils # (Manual) Not Reportable Lymphocytes # (Manual) Not Reportable Monocytes # (Manual) Not Reportable Eosinophils # (Manual) Not Reportable Basophils # (Manual) Not Reportable Differential Comment MANUAL=AUTO DIFF Manual Slide Review Indicated WBC Morphology NORMAL APPEARANCE (NORMAL) Platelet Estimate NORMAL (130-450,000) (NORMAL) Platelet Morphology NORMAL APPEARANCE (NORMAL) RBC Morph Micro Appear 1+ MACROCYTOSIS (NORMAL) Bld Gas Analysis Time Sample Site ABG pH (7.35-7.45) ABG pCO2 (34-45) mmHg ABG pO2 (83-108) mmHg ABG HCO3 (22.0-26.0) mmol/L ABG Total CO2 (21.0-29.0) mmol/L ABG O2 Saturation (95-98) % ABG Base Excess (-2.0-3.0) mmol/L Jimmy Test VBG pH (7.31-7.41) Ionized Calcium (1.09-1.30) mmol/L Respiration Rate b/min O2 Delivery Device Vent Mode FiO2 Tidal Volume mL PEEP cmH2O Sodium 144 (135-145) mmol/L Potassium 4.9 H (3.5-4.5) mmol/L Chloride 101 (101-111) mmol/L Carbon Dioxide 34 H (21-32) mmol/L Anion Gap 9.0 (6-13) BUN 33 H (6-20) mg/dL Creatinine 3.0 H (0.6-1.3) mg/dL Estimated GFR (MDRD) 22 L (>89) Glucose 77 (74-104) mg/dL Calcium 8.8 (8.5-10.3) mg/dL Phosphorus (2.5-5.0) mg/dL Magnesium (1.7-2.3) mg/dL Total Bilirubin 0.3 (0.2-1.0) mg/dL AST 191 H (10-42) IU/L ALT 127 H (10-60) IU/L Alkaline Phosphatase 117 (42-121) IU/L Total Protein 7.0 (6.4-8.9) g/dL Albumin 4.2 (3.2-5.5) g/dL Globulin 2.8 (2.1-4.2) g/dL Albumin/Globulin Ratio 1.5 (1.0-2.2) TSH (0.34-5.60) uIU/mL Free T4 Direct (0.58-1.64) ng/dL Urine Color YELLOW Urine Clarity CLOUDY (CLEAR) Urine pH 6.0 (5.0-7.5) PH Ur Specific [place] >=1.030 H (1.002-1.030) Urine Protein 30 H (NEGATIVE) mg/dL Urine Glucose (UA) NEGATIVE (NEGATIVE) mg/dL Urine Ketones NEGATIVE (NEGATIVE) mg/dL Urine Occult Blood MODERATE (NEGATIVE) Urine Nitrite NEGATIVE (NEGATIVE) Urine Bilirubin NEGATIVE (NEGATIVE) Urine Urobilinogen 0.2 (NORMAL) (NORMAL) E.U./dL Ur Leukocyte Esterase NEGATIVE (NEGATIVE) Urine RBC 6-10 H (0-5) /HPF Urine WBC 0-3 (0-3) /HPF Ur Squamous Epith Cells NONE SEEN (<= Few) Urine Bacteria Few (None Seen) /HPF Urine Casts 3-5 Hyaline Casts /LPF Ur Microscopic Review INDICATED Urine Culture Comments NOT INDICATED Urine Creatinine 161.2 mg/dL Urine Sodium 82.9 mmol/L Nasal Screen MRSA (PCR) (NEGATIVE) Salicylates < 1.5 mg/dL Urine Opiates Screen NEGATIVE (NEGATIVE) Ur Buprenorphine Scrn POSITIVE H (NEGATIVE) Ur Oxycodone Screen NEGATIVE (NEGATIVE) Urine Methadone Screen NEGATIVE (NEGATIVE) Urine Fentanyl Screen Negative (NEGATIVE) Acetaminophen 0.6 ug/mL Ur Barbiturates Screen NEGATIVE (NEGATIVE) Ur Tricyclics Screen NEGATIVE (NEGATIVE) Ur Phencyclidine Scrn NEGATIVE (NEGATIVE) Ur Amphetamine Screen NEGATIVE (NEGATIVE) U Methamphetamines Scrn NEGATIVE (NEGATIVE) U Benzodiazepines Scrn NEGATIVE (NEGATIVE) Urine Cocaine Screen NEGATIVE (NEGATIVE) U Cannabinoids Screen POSITIVE H (NEGATIVE) Ur Drug Screen Comment CUTOFF CONC BELOW: Ethyl Alcohol < 10.0 mg/dL Assessment/Plan Problem List (1) Obtundation: (2) Hypercapnic respiratory failure: (3) COPD (chronic obstructive pulmonary disease): (4) MARIA [place] CARMEN (acute kidney injury): (5) Shock: (6) High cholesterol: (7) Hypothyroid: Qualifiers: Hypothyroidism type: acquired Qualified Code(s): E03.9 - Hypothyroidism, unspecified (8) Hypertension: Qualifiers: Hypertension type: primary hypertension Qualified Code(s): I10 - Essential (primary) hypertension (9) Elevated liver transaminase level:
[2025-07-18] MEDS: FUROSEMIDE 40 MG/4 ML VIAL IVP ONE (08:00)
[2025-07-18] MEDS: ALBUMIN 25% 12.5 GM/50 ML VIAL IV STA (08:00)
[2025-07-18] MEDS ORDERED: LEVOTHYROXINE 100 MCG TABLET PO SCH (09:00)
[2025-07-18] MEDS ORDERED: cefTRIAXone 2 GM in SODIUM CHLORIDE 0.9% MINIBAG 100 ML IV SCH (09:00)
[2025-07-18] MEDS ORDERED: LEVOTHYROXINE 75 MCG TABLET PO SCH (09:00)
[2025-07-18] MEDS: LEVOTHYROXINE 100 MCG TABLET FT SCH (09:23)
[2025-07-18] MEDS: fentaNYL 100 MCG/2 ML VIAL IVP ONE (09:24)
[2025-07-18] MEDS: LEVOTHYROXINE 75 MCG TABLET FT SCH (09:25)
[2025-07-18] MEDS: DEXTROSE 5%-0.45% NACL 1,000 ML IV STA (09:25)
[2025-07-18] MEDS: INSULIN REGULAR, HUMAN 300 UNIT/3 ML PEN SUBQ SCH (12:50)
--- NOTE | 2025-07-18 12:51 | PHARMACY PROGRESS NOTE ---
Best Possible Medication History Admit Date and Time: 07/17/25 [id number] Home Medications Medication Instructions Recorded Confirmed Type gabapentin 300 mg capsule 300 mg PO BID 09/30/2307/17 History losartan 100 mg tablet 100 mg PO DAILY #30 tabs 07/17/25 Rx albuterol sulfate 2.5 mg/3 mL 2.5 mg inhalation Q6H VT N 09/12/24 07/17/25 History (0.083 %) solution for nebulization shortness of breat h or wheezing atorvastatin 40 mg tablet 40 mg PO QPM 09/12/24 History budesonide-formoterol HFA 160 2 puff inhalation TID 07/17/25 History mcg-4.5 mcg/actuation aerosol inhaler buprenorphine 8 mg-naloxone 2 mg 1 film sublingual TID 09/12/24 07/17/25 History sublingual film (Suboxone) bupropion HCl 150 mg 24 hr tablet, 450 mg PO DAILY 07/2707/17/25 History extended release fluoxetine 10 mg capsule 10 mg PO DAILY 09/12/2407/04 History Held on 07/17/25. Instructions: Per Patient ipratropium 0.5 mg-albuterol 3 mg 3 ml inhalation BID 09/12/24 07/17/25 History (2.5 mg base)/3 mL nebulization soln metformin 500 mg tablet,extended 500 mg PO DAILY 09/1207/17/25 History release 24 hr tiotropium bromide 18 mcg capsule 1 cap inhalation MANUEL LY 09/12/24 07/17/25 History with inhalation device tizanidine 4 mg tablet 4 mg PO BID PRN anxiety 09/0307/17/25 History furosemide 20 mg tablet 20 mg PO DAILY 07/17/2507/04 History levothyroxine 175 mcg tablet 175 mcg PO DAILY 07/17/25 07/17/25 History triamcinolone acetonide 0.1 % 1 applic topical BID PRN rash 07/17/25 07/17/25 History topical cream albuterol sulfate 90 mcg/actuation 2 puff inhalation Q 4H PRN 07/18/25 07/18/25 History aerosol inhaler shortness of breath or wheez ing roflumilast 500 mcg tablet 500 mcg PO DAILY 07/18/25 1 History Processed by: Pharmacy Medications reviewed in ED?: Yes Medication History completed: Yes Patient Interview: Completed Secondary Source(s): Other family member and Insurance records [facility] Statement: per patients mother medication list is accurate as confirmed by insurance records although she reports he recently stopped taking medications but cannot confirm how long it has been. most medications were pickup up from pharmacy less than 30 days ago. As the person ultimately responsible for medication therapy, providers are able to order a medication from an existing home medication list in [facility] via the "Reconcile Routine" prior to Confirmation of that medication by customer support manager. Such practice is discouraged except when the physician, in their clinical judgment, deems that a medical need exists for a medication without regard to previous use.
[2025-07-18 13:16] LABS: B. PARAPERTUSSIS- RESP PCR PAN NOT DETECTED; B. PERTUSSIS- RESP PCR PANEL NOT DETECTED; C. PNEUMONIAE- RESP PCR PANEL NOT DETECTED; CORONAVIRUS 229E-RESP PCR NOT DETECTED; CORONAVIRUS HKU1-RESP PCR NOT DETECTED; CORONAVIRUS NL63-RESP PCR NOT DETECTED; CORONAVIRUS OC43-RESP PCR NOT DETECTED; HUMAN METAPNEUMOVIRUS NOT DETECTED; INFLUENZA A- RESP PCR PANEL NOT DETECTED; INFLUENZA B - RESP PCR PANEL NOT DETECTED; M. PNEUMONIAE- RESP PCR PANEL NOT DETECTED; PARAINFLUENZA VIRUS 1 NOT DETECTED; PARAINFLUENZA VIRUS 2 NOT DETECTED; PARAINFLUENZA VIRUS 4 NOT DETECTED; RHINOVIRUS/ENTEROVIRUS NOT DETECTED; RSV- RESP PCR PANEL NOT DETECTED; SARS-CoV-2 -RESP PCR PANEL NOT DETECTED
--- NOTE | 2025-07-18 14:40 | Discharge Summary ---
"Discharge Summary Admit Date: 07/17/25 Discharge Date: 07/18/25 Discharging Provider: Samy Jackson Primary Care Provider: Arturo Code Status: Attempt Resuscitation Discharge Facility Name: [facility] DIAGNOSES Discharge Diagnoses with Status of Each Condition: Acute on chronic hypoxemic and hypercapnic respiratory failure, ongoing Septic shock, resolved Commune acquired pneumonia, improving MARIA DEL CARMEN, worsening, consideration for dialysis Nitrous oxide abuse, chronic COPD, chronic HPI History of Present Illness: This is a 49-year-old male with past medical history of Remote polysubstance use, hypothyroidism, hypertension, COPD on home O2, hyperlipidemia, chronic venous insufficiency, and depression Who was found down by family and after being found to be unarousable EMS was called. EMS found the patient with agonal respirations. They found him breathing, but were not able to palpate a pulse and therefore started CPR. He got 1 mg of epinephrine in the field. IO was placed in the right lower leg but was nonfunctional by the time he was here and has since been removed. There was initially suspicion the patient had overdosed in the field. He has a history of heavy narcotic use and amphetamines. Notably had a period of prolonged sobriety starting in December 2023. He has since relapsed somewhat. He most recently has been doing large amounts of nitrous oxide, but is unclear that he is actually been doing any narcotics otherwise. He he unfortunately did receive fentanyl in the field so his UDS will not necessarily be indicative of his drug use. His family does not know of any recent narcotic or amphetamine use. He has been quite fatigued and at home for the last several days prior to admission, and they are dubious that he would have the energy to seek out additional drugs. They are actively working to see if any of his old dealer contacts have been in touch with him. Apparently, he has a protracted health decline over the last couple of years. He is on 4 L of oxygen continuously and does run out a few times when traveling around town. His family is found him doing whippets and becoming hypoxic because he is off of his oxygen. He additionally removes his oxygen while sleeping at times. He was not wearing his oxygen when he was found by EMS. They are unclear if he is taking his medicines as directed. He was recently prescribed a prolonged high-dose steroid taper starting at 50 mg, unclear if he tapered but has stopped within the last couple of weeks which is also suspicious given his acute decompensation. He got 10 mg of Versed and 200 mcg of fentanyl after being intubated in the field he has since had 3 peripheral IVs placed, started on dextromethorphan, and is still intubated. He did receive IV and intranasal Narcan in the ED. He is in shock after being intubated. He is on Levophed at 8 mcg/min, though his pressor requirement is downtrending already in the ED. Review of systems as unobtainable given he is intubated and sedated. CONSULTS | PROCEDURES Procedures: Central line placement Chest x-ray confirming ETT position and line placements HOSPITAL COURSE Hospital Course: This is a 49-year-old male with a past medical history notable for progressive COPD on 3 to 4 L home O2 continuously, hypothyroidism, hypertension, dyslipidemia, chronic venous insufficiency, depression, polysubstance use disorder (most recently nitrous oxide, remote history of narcotic and amphetamine abuse) who presented after being found down at home for several hours. He was obtunded when EMS arrived. He was hypoxemic and intubated in the field. There was initial concern for PEA arrests as they could not palpate a pulse in the field and he did receive a round of CPR and epinephrine before a pulse was palpated but notably he was still breathing during this arrest. Oxygen saturations from the field were not recorded. He was intubated and transferred to [facility]. Here, IV access was established. A central line was placed. He became progressively more hypotensive and went into shock. He was requiring high dose pressors up to 20 mcg of Levophed and vasopressin. He was febrile up to 40 C. He received antipyretics and cooling. He was started on treatment for commune acquired pneumonia given coarse rhonchi in his lungs. Blood cultures were drawn but have not yet yielded any growth. With ventilation and normalization of his acid-base balance, and starting on IV antibiotics, he defervesced and has not had recurrent fevers. He was able to wean off of pressors as of the morning of 07/18. Unfortunately his kidney function is not recovered. He has oliguric MARIA DEL CARMEN that was unresponsive to both fluid and diuretic challenge. Graciously has been accepted for transfer to [facility] for ongoing management. He needs specialty care including possible dialysis if his kidneys do not recover. He remains intubated and critically ill. The etiology of his initial presentation is not wholly clear. He has chronic nitrous oxide abuse, which may have contributed to his global weakness. His COPD appears to have progressed over the last several months. Over the week prior to his admission, he felt more malaise, fatigue increased cough and fever all suggestive of a pneumonia being the inciting incident however he has not had a leukocytosis and his viral respiratory panel was negative. He did improve after starting on antibiotics. Additionally he is recently weaned from corticosteroids for a COPD exacerbation at the end of May. His family is unclear on how he weaned off of steroids but he informed them that he had stopped steroids sometime in the last week around the time his symptoms began. He was also treated with IV corticosteroids here with concern for adrenal insufficiency precipitating his shock. Again he improved while on this treatment. Unfortunately AM cortisol is a send out lab for our hospital and would not return in a timely manner. Finally, he was incidentally found to have uncontrolled hypothyroidism. His fever is not consistent with myxedema coma but his TSH here was 55 which may be contributing to his fatigue and malaise and inanition in the weeks prior to arrival. Extensive goals of care conversation with his family. He has 2 adult children who are in agreement with this plan and this was discussed with them at bedside. His mother Nova has also been very involved in his care. He does not have a named POA. He has never filled out a POLST. They believe he would want all aggressive measures. Of note he has a young 5-year-old child as well that motivates him to get better. ALLERGIES Allergies Allergy/AdvReac Type Severity Reaction Status Date / Time Penicillins Allergy Unknown Verified 09/12/24 22:31 MEDICATIONS Ambulatory Orders Medication Instructions Recorded Confirmed gabapentin 300 mg capsule 300 mg PO BID 09/30/2307/17 losartan 100 mg tablet 100 mg PO DAILY #30 tabs 07/17/25 albuterol sulfate 2.5 mg/3 mL 2.5 mg inhalation Q6H DE N 09/12/24 07/17/25 (0.083 %) solution for nebulization shortness of breat h or wheezing atorvastatin 40 mg tablet 40 mg PO QPM 09/12/24 budesonide-formoterol HFA 160 2 puff inhalation TID 07/17/25 mcg-4.5 mcg/actuation aerosol inhaler buprenorphine 8 mg-naloxone 2 mg 1 film sublingual TID 09/12/24 07/17/25 sublingual film (Suboxone) bupropion HCl 150 mg 24 hr tablet, 450 mg PO DAILY 07/2707/17/25 extended release fluoxetine 10 mg capsule 10 mg PO DAILY 09/12/2407/04 ipratropium 0.5 mg-albuterol 3 mg 3 ml inhalation BID 09/12/24 07/17/25 (2.5 mg base)/3 mL nebulization soln metformin 500 mg tablet,extended 500 mg PO DAILY 09/1207/17/25 release 24 hr tiotropium bromide 18 mcg capsule 1 cap inhalation MANUEL LY 09/12/24 07/17/25 with inhalation device tizanidine 4 mg tablet 4 mg PO BID PRN anxiety 09/0307/17/25 furosemide 20 mg tablet 20 mg PO DAILY 07/17/2507/04 levothyroxine 175 mcg tablet 175 mcg PO DAILY 07/17/25 07/17/25 triamcinolone acetonide 0.1 % 1 applic topical BID PRN rash 07/17/25 07/17/25 topical cream albuterol sulfate 90 mcg/actuation 2 puff inhalation Q 4H PRN 07/18/25 07/18/25 aerosol inhaler shortness of breath or wheez ing roflumilast 500 mcg tablet 500 mcg PO DAILY 07/18/25 1 PHYSICAL EXAM AT DISCHARGE Vital Signs: Vital Signs x48h Temp Pulse Pulse Resp BP Pulse Ox 07/18/25 14:00 37.9 C 76 18 128/94 H 92 07/18/25 13:16 65 07/18/25 13:00 37.7 C 74 18 128/99 H 92 07/18/25 12:31 37.6 C 74 20 136/99 H 93 07/18/25 12:00 37.5 C 72 20 125/99 H 96 07/18/25 11:00 37.3 C 73 17 130/103 H 93 07/18/25 10:01 68 07/18/25 10:00 37.0 C 72 18 136/91 H 92 07/18/25 09:30 37.0 C 70 18 129/99 H 90 L 07/18/25 09:00 37.0 C 72 18 124/93 H 92 07/18/25 08:30 36.9 C 73 18 106/82 95 07/18/25 08:00 36.9 C 71 22 106/82 92 07/18/25 07:34 68 07/18/25 07:00 36.9 C 70 18 129/96 H 95 LABS 07/18/25 04:20 07/18/25 04:20 FOLLOW UP Follow Up: Being transferred out for higher level of care. TIME SPENT Time Spent in Discharge (Minutes): 51 Discharge Plan Discharge Patient Disposition: 02 Transfer Acute Care Hosp Condition: Serious Medically Cleared Date:: 07/18/25 Medically Cleared Comments:: Medically stable for discharge to ICU [place] Prescriptions: Continued gabapentin 300 MG capsule 300 mg PO BID losartan 100 MG tablet 100 mg PO DAILY Qty: 30 0RF atorvastatin 40 mg tablet 40 mg PO QPM Patient Comments: take 1 tablet by mouth once daily albuterol sulfate 2.5 mg /3 mL (0.083 %) solution for nebulization 2.5 mg inhalation Q6H PRN (Reason: shortness of breath or wheezing) Patient Comments: inhale contents of 1 vial ( 3 MILLILITERS ) in nebulizer by mouth... (REFER TO PRESCRIPTION NOTES). budesonide-formoterol 160-4.5 mcg/actuation HFA aerosol inhaler 2 puff INHALATION TID Patient Comments: inhale 2 puffs three times a day buprenorphine-naloxone [Suboxone] 8-2 mg film 1 film sublingual TID Patient Comments: dissolve 1 FILM under the tongue three times a day bupropion HCl 150 mg tablet extended release 24 hr 450 mg PO DAILY fluoxetine 10 mg capsule 10 mg PO DAILY ipratropium-albuterol 0.5 mg-3 mg(2.5 mg base)/3 mL solution for nebulization 3 ml INHALATION BID metformin 500 mg tablet extended release 24 hr 500 mg PO DAILY Patient Comments: take 1 tablet by mouth once daily tiotropium bromide 18 mcg capsule, w/inhalation device 1 cap INHALATION DAILY Patient Comments: inhale THE CONTENTS OF ONE CAPSULE IN THE HANDIHALER once daily tizanidine 4 mg tablet 4 mg PO BID PRN (Reason: anxiety) Patient Comments: take 1 tablet by mouth twice a day if needed for anxiety or AGITATION levothyroxine 175 mcg tablet 175 mcg PO DAILY furosemide 20 mg tablet 20 mg PO DAILY Patient Comments: TAKE ONE TABLET BY MOUTH ONE TIME DAILY triamcinolone acetonide 0.1 % cream 1 applic TOPICAL BID PRN (Reason: rash) Patient Comments: apply to affected area twice a day for 2 weeks as needed for rash, then stop for 1-2 weeks. can repeat as needed albuterol sulfate 90 mcg/actuation HFA aerosol inhaler 2 puff INHALATION Q4H PRN (Reason: shortness of breath or wheezing) Patient Comments: INHALE TWO PUFFS BY MOUTH EVERY FOUR TO SIX HOURS NEEDED FOR WHEEZING or shortness of breath roflumilast 500 mcg tablet 500 mcg PO DAILY Patient Comments: TAKE ONE TABLET BY MOUTH ONE TIME DAILY Activity Restrictions: Activity as Tolerated Diet: Regular Health Concerns: You admitted with respiratory failure, he required intubation in the ICU. You required medicines to keep your blood pressure up. I suspect most of this was from a community-acquired pneumonia. You have been started on antibiotics. You are clinically improving, but your kidneys are not recovering appropriately. You may need dialysis even for a temporary period. You are being transferred to [facility] for consideration of dialysis and nephrology consult. Print Language: Uzbek Vitals documented within 30 minutes of discharge?: Yes"
[2025-07-18 14:58] VITALS: TEMP 100.6; O2SAT 93
[2025-07-18 16:36] VITALS: BP 123/94
--- NOTE | 2025-07-18 16:53 | XRAY Report ---
PROCEDURE: XR Chest for Line Placement INDICATIONS: CENTRAL LINE IJ PLACEMENT TECHNIQUE: Single frontal view of the chest was obtained COMPARISON: None FINDINGS: Instrumentation: Endotracheal tube tip 3 cm above the nazanin. Right IJ central venous line tip at the cavoatrial junction. Nasogastric tube in the stomach. No pneumothorax Heart size, mediastinum and pulmonary vasculature: Unremarkable. Lungs and pleural spaces: Clear. No pneumothorax or pleural effusion. Osseous structures: Unremarkable IMPRESSION: Lines and tubes in good position. No pneumothorax Reviewed by: Francois García MD on 07/18/2025 3:50 PM AKDT Approved by: Francois García MD on 07/18/2025 3:50 PM AKDT Station ID: [id number]
== END 2025-07-18 16:00 | disposition short-term general hospital (02) | DRG 871 ==
LOC: ED 15:09 → ICU 16:53
PROVIDERS: ADMIT Student in an Organized Health Care Education/Training Program; ATTEND Student in an Organized Health Care Education/Training Program
DX: J96.21 Acute and chronic respiratory failure with hypoxia; F18.10 Inhalant abuse, uncomplicated; R74.01 Elevation of levels of liver transaminase levels; I87.2 Venous insufficiency (chronic) (peripheral); J18.9 Pneumonia, unspecified organism; A41.9 Sepsis, unspecified organism; I10 Essential (primary) hypertension; R53.1 Weakness; R65.21 Severe sepsis with septic shock; E78.5 Hyperlipidemia, unspecified; R53.83 Other fatigue; J96.22 Acute and chronic respiratory failure with hypercapnia; N17.9 Acute kidney failure, unspecified; E03.9 Hypothyroidism, unspecified; J44.9 Chronic obstructive pulmonary disease, unspecified; Z99.81 Dependence on supplemental oxygen; F32.A Depression, unspecified